=== PATIENT | male | born 1955 | race Caucasian/White ===

== ENCOUNTER 2018-02-02 00:50 | Inpatient (IN) | payer MEDICARE, MEDICAID, OTHER ==
[2018-02-02] MEDS: ALBUTEROL 0.5% (NEB) 2.5 MG/0.5 ML AMP INH (01:14)
[2018-02-02] MEDS: IPRATROPIUM (NEB) 0.5 MG/2.5 ML AMP INH (01:14)
[2018-02-02] MEDS: ASPIRIN 81 MG TAB PO (01:33)
[2018-02-02] MEDS: DEXAMETHASONE 10 MG/ML 1 ML INJ IV (01:33)
[2018-02-02 01:42] LABS: ADD MAN DIFF? NO
[2018-02-02] MEDS: MAGNESIUM SULFATE 2 GM/50 ML 50 ML IVPB (01:45)
[2018-02-02 01:47] LABS: BASOPHILS % 0.3 % (0.0-2.0); EOSINOPHILS # 0.2 10^3/ul (0.0-0.5); EOSINOPHILS % 1.9 % (0.0-7.0); HEMATOCRIT 33.7 % (42.0-52.0); HEMOGLOBIN 10.7 g/dl (14.0-18.0); LYMPHOCYTES # 1.9 10^3/ul (0.8-2.9); LYMPHOCYTES % 17.9 % (15.0-51.0); MEAN CORPUSCULAR HEMOGLOBIN 30.8 pg (29.0-33.0); MEAN CORPUSCULAR HGB CONC 31.8 g/dl (32.0-37.0); MEAN CORPUSCULAR VOLUME 97.1 fl (82.0-101.0); MEAN PLATELET VOLUME 10.8 fl (7.4-10.4); MONOCYTES % 9.5 % (0.0-11.0); NEUTROPHIL # 7.4 10^3/ul (1.6-7.5); NEUTROPHILS % 69.6 % (39.0-77.0); PLATELET COUNT 193 10^3/UL (140-415); RED BLOOD COUNT 3.47 10^6/ul (4.70-6.10); RED CELL DISTRIBUTION WIDTH 13.6 % (11.5-14.5)
[2018-02-02 01:47] LABS: WHITE BLOOD COUNT 10.6 10^3/ul (4.8-10.8)
[2018-02-02] MEDS: FUROSEMIDE 40 MG INJ IV (02:02)
[2018-02-02 02:09] LABS: PROTIME 13.3 Sec (11.9-14.9)
[2018-02-02 02:10] LABS: PARTIAL THROMBOPLASTIN TIME 55.1 Sec (23.0-35.0)
[2018-02-02 02:45] LABS: ANION GAP 12 (5-13); BLOOD UREA NITROGEN 46 mg/dl (7-20); CALCIUM 8.4 mg/dl (8.4-10.2); CARBON DIOXIDE 32 mmol/L (21-31); CHLORIDE 91 mmol/L (97-110); Estimated GFR 14 mL/min (>60); GLUCOSE 104 mg/dl (70-220); SODIUM 135 mmol/L (135-144)
[2018-02-02 02:49] LABS: POTASSIUM 4.6 mmol/L (3.5-5.1)
[2018-02-02 02:57] LABS: B-TYPE NATRIURETIC PEPTIDE 5290 PG/ML (0-125); TROPONIN-I 0.043 ng/ml (0.000-0.120)
[2018-02-02 05:22] LABS: AADO2 Arterial 73.5 mmHg (7.0-24.0); Arterial Base Excess -1.1 mmol/L (-3.0-3); Arterial Blood Gas Oxygen Sat 90.4 mmHG (95.0-98.0); Arterial COHb 1.1 % (0.0-3.0); Arterial Fraction of Oxyhgb 89.1 % (93.0-99.0); Arterial HCO3 25.5 mmol/L (22.0-26.0); Arterial MetHb 0.3 % (0.0-1.5); Arterial pCO2 51.9 mmhg (35-45); MODE NASAL CANNULA; Site Right Brachial
[2018-02-02] MEDS ORDERED: ONDANSETRON 4 MG INJ IV ×2 (05:30→13:30)
[2018-02-02] MEDS ORDERED: ACETAMINOPHEN 325 MG TAB PO (05:30)
[2018-02-02 08:07] LABS: CREATINE KINASE 133 IU/L (23-200)
[2018-02-02 08:13] LABS: CK INDEX 3.6; TROPONIN-I 0.038 ng/ml (0.000-0.120)
[2018-02-02 08:17] LABS: CK-MB 4.73 ng/ml (0.0-2.4)
[2018-02-02] MEDS ORDERED: NACL 0.9% 3 ML SYG IV (13:30)
[2018-02-02] MEDS ORDERED: HEPARIN 5,000 UNIT/1 ML VIAL SC (14:00)
[2018-02-02 14:16] LABS: CREATINE KINASE 132 IU/L (23-200)
[2018-02-02] MEDS: HEPARIN 5,000 UNIT/0.5 ML VIAL SC (14:22)
[2018-02-02 14:28] LABS: CK INDEX 3.2; TROPONIN-I 0.017 ng/ml (0.000-0.120)
[2018-02-02 14:31] LABS: CK-MB 4.26 ng/ml (0.0-2.4)
[2018-02-02] MEDS ORDERED: GLUCOSE GEL 15 GRAM TUBE BUCCAL (18:00)
[2018-02-02] MEDS ORDERED: DEXTROSE 50% 50 ML SYRINGE IV ×2 (18:00)
[2018-02-02] MEDS ORDERED: GLUCAGON 1 MG INJ IM (18:00)
[2018-02-02] MEDS ORDERED: GLUCOSE GEL 15 GRAM TUBE PO ×2 (18:00)
[2018-02-02] MEDS: INSULIN ASPART [NOVOLOG] 3 ML PEN SC ×2 (18:30→20:25)
[2018-02-02] MEDS: morphine 2 MG INJ IV ×2 (19:50→22:49)
[2018-02-02] MEDS: FAMOTIDINE 20 MG INJ IV (20:14)
[2018-02-02] MEDS ORDERED: HEPARIN 5,000 UNIT/0.5 ML VIAL (21:38)
[2018-02-02] MEDS: HEPARIN 5,000 UNIT/1 ML VIAL SC (21:46)
[2018-02-02] MEDS: ALBUTEROL 0.083% (NEB) 2.5 MG/3 ML AMP HHN (21:58)
[2018-02-03] MEDS: ALBUTEROL 0.083% (NEB) 2.5 MG/3 ML AMP HHN (02:14)
[2018-02-03] MEDS: LORAZEPAM 2 MG INJ IV (02:18)
[2018-02-03] MEDS: morphine 2 MG INJ IV (03:14)
[2018-02-03] MEDS ORDERED: HEPARIN 5,000 UNIT/0.5 ML VIAL (04:48)
[2018-02-03] MEDS: HEPARIN 5,000 UNIT/1 ML VIAL SC (05:01)
[2018-02-03 05:04] LABS: ADD MAN DIFF? NO
[2018-02-03 05:21] LABS: BASOPHILS % 0.2 % (0.0-2.0); EOSINOPHILS % 0.3 % (0.0-7.0); HEMATOCRIT 33.1 % (42.0-52.0); HEMOGLOBIN 10.5 g/dl (14.0-18.0); LYMPHOCYTES # 0.6 10^3/ul (0.8-2.9); LYMPHOCYTES % 5.4 % (15.0-51.0); MEAN CORPUSCULAR HEMOGLOBIN 30.4 pg (29.0-33.0); MEAN CORPUSCULAR HGB CONC 31.7 g/dl (32.0-37.0); MEAN CORPUSCULAR VOLUME 95.9 fl (82.0-101.0); MEAN PLATELET VOLUME 10.9 fl (7.4-10.4); MONOCYTE # 0.8 10^3/ul (0.3-0.9); MONOCYTES % 7.4 % (0.0-11.0); NEUTROPHIL # 9.7 10^3/ul (1.6-7.5); NEUTROPHILS % 85.9 % (39.0-77.0); PLATELET COUNT 224 10^3/UL (140-415); RED BLOOD COUNT 3.45 10^6/ul (4.70-6.10); RED CELL DISTRIBUTION WIDTH 13.8 % (11.5-14.5)
[2018-02-03 05:21] LABS: WHITE BLOOD COUNT 11.3 10^3/ul (4.8-10.8)
[2018-02-03 05:55] LABS: ALANINE AMINOTRANSFERASE 22 IU/L (13-69); ALBUMIN/GLOBULIN RATIO 1.25; ALKALINE PHOSPHATASE 110 IU/L (42-121); ANION GAP 17 (5-13); ASPARTATE AMINO TRANSFERASE 36 IU/L (15-46); BILIRUBIN,INDIRECT 0.2 mg/dl (0-1.1); BILIRUBIN,TOTAL 0.2 mg/dl (0.2-1.3); BLOOD UREA NITROGEN 75 mg/dl (7-20); CALCIUM 8.1 mg/dl (8.4-10.2); CARBON DIOXIDE 24 mmol/L (21-31); CHLORIDE 92 mmol/L (97-110); CREATININE 4.74 mg/dl (0.61-1.24); Estimated GFR 13 mL/min (>60); GLUCOSE 329 mg/dl (70-220); POTASSIUM 5.6 mmol/L (3.5-5.1); SODIUM 133 mmol/L (135-144); TOTAL PROTEIN 7.2 g/dl (6.1-8.1)
[2018-02-03] MEDS: INSULIN ASPART [NOVOLOG] 3 ML PEN SC ×4 (08:53→21:44)
[2018-02-03] MEDS ORDERED: METHYLPREDNISOLONE 125 MG INJ IV (09:00)
[2018-02-03 10:53] LABS: HEMOGLOBIN A1C 11.8 % (0-5.9)
[2018-02-03 12:59] LABS: AADO2 Arterial 93.9 mmHg (7.0-24.0); Allen Test ACCEPTAB; Arterial Base Excess -0.1 mmol/L (-3.0-3); Arterial Blood Gas Oxygen Sat 94.7 mmHG (95.0-98.0); Arterial COHb 0.1 % (0.0-3.0); Arterial Fraction of Oxyhgb 94.3 % (93.0-99.0); Arterial HCO3 26.3 mmol/L (22.0-26.0); Arterial MetHb 0.3 % (0.0-1.5); Arterial pCO2 50.5 mmhg (35-45); MODE NASAL CANNULA; Site Right Brachial
[2018-02-03] MEDS: DULOXETINE 30 MG CAP DR PO (13:30)
[2018-02-03] MEDS: LIDOCAINE 1% (MPF) 5 ML VIAL SC (14:00)
[2018-02-03] MEDS: ALBUTEROL/IPRATROPIUM (NEB) 3 ML AMP HHN ×2 (14:59→20:16)
[2018-02-03 15:15] LABS: HEPATITIS B SURFACE ANTIGEN NEGATIVE (NEGATIVE)
[2018-02-03 15:33] LABS: HEPATITIS B SURFACE ANTIBODY POSITIVE (NEGATIVE)
[2018-02-03] MEDS: SEVELAMER CARBONATE 0.8 GM PKT PO (17:35)
[2018-02-03] MEDS: CEFTRIAXONE 1 GM/50 ML (PMX) 50 ML IVPB (18:51)
[2018-02-03] MEDS: NPH, HUMAN INSULIN ISOPHANE 3ML VIAL SC ×2 (19:05→20:32)
[2018-02-03] MEDS: TAMSULOSIN (SR) 0.4 MG CAP PO (20:26)
[2018-02-03] MEDS: ATORVASTATIN 80 MG TAB PO (20:26)
[2018-02-03] MEDS: DOCUSATE SODIUM 250 MG CAP PO (20:26)
[2018-02-03] MEDS: FUROSEMIDE 40 MG TAB PO (20:26)
[2018-02-03] MEDS: ACETAMINOPHEN 325 MG TAB PO (20:27)
[2018-02-03] MEDS: APIXABAN 5 MG TABLET PO (20:27)
[2018-02-03] MEDS: METHYLPREDNISOLONE 40 MG INJ IV (20:27)
[2018-02-03] MEDS ORDERED: HALOPERIDOL 5 MG INJ (21:11)
[2018-02-04] MEDS ORDERED: HALOPERIDOL 5 MG INJ IM
[2018-02-04] MEDS: ALBUTEROL/IPRATROPIUM (NEB) 3 ML AMP HHN ×4 (02:00→20:28)
[2018-02-04] MEDS: PANTOPRAZOLE (EC) 40 MG TAB PO (05:45)
[2018-02-04 06:46] LABS: ALANINE AMINOTRANSFERASE 18 IU/L (13-69); ALBUMIN 4.2 g/dl (3.3-4.9); ALBUMIN/GLOBULIN RATIO 1.31; ALKALINE PHOSPHATASE 107 IU/L (42-121); ANION GAP 16 (5-13); ASPARTATE AMINO TRANSFERASE 27 IU/L (15-46); BILIRUBIN,INDIRECT 0.2 mg/dl (0-1.1); BILIRUBIN,TOTAL 0.2 mg/dl (0.2-1.3); BLOOD UREA NITROGEN 48 mg/dl (7-20); CALCIUM 8.4 mg/dl (8.4-10.2); CARBON DIOXIDE 29 mmol/L (21-31); CHLORIDE 89 mmol/L (97-110); CHOL/HDL RATIO 7.1 RATIO; CHOLESTEROL 236 mg/dl (100-200); CREATININE 4.12 mg/dl (0.61-1.24); Estimated GFR 15 mL/min (>60); GLUCOSE 368 mg/dl (70-220); HDL CHOLESTEROL 33 mg/dl (30-78); LDL CHOLESTEROL,CALCULATED 142 mg/dl; POTASSIUM 5.6 mmol/L (3.5-5.1); SODIUM 134 mmol/L (135-144); TOTAL PROTEIN 7.4 g/dl (6.1-8.1); TRIGLYCERIDES 303 mg/dl (0-149)
[2018-02-04] MEDS: FENOFIBRATE 145 MG TAB PO (08:39)
[2018-02-04] MEDS: SEVELAMER CARBONATE 0.8 GM PKT PO ×3 (08:39→18:07)
[2018-02-04] MEDS: METHYLPREDNISOLONE 40 MG INJ IV ×2 (08:39→20:54)
[2018-02-04] MEDS: DULOXETINE 30 MG CAP DR PO (08:40)
[2018-02-04] MEDS: ASPIRIN (EC) 81 MG TAB PO (08:40)
[2018-02-04] MEDS: APIXABAN 5 MG TABLET PO ×2 (08:40→20:55)
[2018-02-04] MEDS: FUROSEMIDE 40 MG TAB PO ×2 (08:41→20:56)
[2018-02-04] MEDS: DOCUSATE SODIUM 250 MG CAP PO ×2 (08:41→20:55)
[2018-02-04] MEDS: NPH, HUMAN INSULIN ISOPHANE 3ML VIAL SC ×2 (08:42→21:04)
[2018-02-04] MEDS: INSULIN ASPART [NOVOLOG] 3 ML PEN SC ×4 (08:44→21:05)
[2018-02-04 08:56] LABS: HEMOGLOBIN A1C 11.2 % (0-5.9)
[2018-02-04] MEDS ORDERED: NON-FORMULARY/PATIENT OWN MED (Esomeprazole Mag Trihydrate (Nexium) 40 MG) PO (09:00)
[2018-02-04] MEDS: CEFTRIAXONE 1 GM/50 ML (PMX) 50 ML IVPB (18:02)
[2018-02-04] MEDS: ATORVASTATIN 80 MG TAB PO (20:56)
[2018-02-04] MEDS: TAMSULOSIN (SR) 0.4 MG CAP PO (20:56)
[2018-02-04] MEDS: HALOPERIDOL 5 MG INJ IM (21:58)
[2018-02-04] MEDS: HYDROmorphONE 0.5 MG/0.5 ML SYG IV (22:47)
[2018-02-05] MEDS: ALBUTEROL/IPRATROPIUM (NEB) 3 ML AMP HHN ×4 (02:49→19:25)
[2018-02-05] MEDS: PANTOPRAZOLE (EC) 40 MG TAB PO (05:11)
[2018-02-05 05:17] LABS: ADD MAN DIFF? NO
[2018-02-05 05:19] LABS: WHITE BLOOD COUNT 9.7 10^3/ul (4.8-10.8)
[2018-02-05 05:19] LABS: BASOPHILS % 0.3 % (0.0-2.0); EOSINOPHILS % 0.4 % (0.0-7.0); HEMATOCRIT 36.5 % (42.0-52.0); HEMOGLOBIN 11.6 g/dl (14.0-18.0); LYMPHOCYTES # 1.1 10^3/ul (0.8-2.9); LYMPHOCYTES % 11.4 % (15.0-51.0); MEAN CORPUSCULAR HEMOGLOBIN 30.5 pg (29.0-33.0); MEAN CORPUSCULAR HGB CONC 31.8 g/dl (32.0-37.0); MEAN CORPUSCULAR VOLUME 96.1 fl (82.0-101.0); MEAN PLATELET VOLUME 10.6 fl (7.4-10.4); MONOCYTE # 0.5 10^3/ul (0.3-0.9); MONOCYTES % 4.9 % (0.0-11.0); NEUTROPHIL # 7.9 10^3/ul (1.6-7.5); NEUTROPHILS % 81.1 % (39.0-77.0); PLATELET COUNT 272 10^3/UL (140-415); RED CELL DISTRIBUTION WIDTH 13.5 % (11.5-14.5)
[2018-02-05 05:57] LABS: ALANINE AMINOTRANSFERASE 8 IU/L (13-69); ALBUMIN/GLOBULIN RATIO 1.08; ALKALINE PHOSPHATASE 128 IU/L (42-121); ANION GAP 18 (5-13); ASPARTATE AMINO TRANSFERASE 21 IU/L (15-46); BILIRUBIN,INDIRECT 0.2 mg/dl (0-1.1); BILIRUBIN,TOTAL 0.2 mg/dl (0.2-1.3); BLOOD UREA NITROGEN 54 mg/dl (7-20); CALCIUM 8.5 mg/dl (8.4-10.2); CARBON DIOXIDE 27 mmol/L (21-31); CHLORIDE 90 mmol/L (97-110); CREATININE 4.94 mg/dl (0.61-1.24); Estimated GFR 12 mL/min (>60); GLUCOSE 324 mg/dl (70-220); MAGNESIUM 2.2 mg/dl (1.7-2.5); PHOSPHORUS 5.3 mg/dl (2.5-4.9); SODIUM 135 mmol/L (135-144); TOTAL PROTEIN 7.7 g/dl (6.1-8.1)
[2018-02-05] MEDS: SEVELAMER CARBONATE 0.8 GM PKT PO ×3 (07:59→16:53)
[2018-02-05] MEDS: APIXABAN 5 MG TABLET PO ×2 (08:00→20:17)
[2018-02-05] MEDS: DULOXETINE 30 MG CAP DR PO (08:00)
[2018-02-05] MEDS: HYDROCODONE/APAP (5/325) TAB NGT ×2 (08:00→20:16)
[2018-02-05] MEDS: ASPIRIN (EC) 81 MG TAB PO (08:01)
[2018-02-05] MEDS: FENOFIBRATE 145 MG TAB PO (08:01)
[2018-02-05] MEDS: DOCUSATE SODIUM 250 MG CAP PO ×2 (08:01→20:16)
[2018-02-05] MEDS: INSULIN GLARGINE [LANTus] (100 UNITS/ML) SYG SC (08:15)
[2018-02-05] MEDS: INSULIN ASPART [NOVOLOG] 3 ML PEN SC ×7 (08:16→20:24)
[2018-02-05] MEDS: METHYLPREDNISOLONE 40 MG INJ IV (08:23)
[2018-02-05] MEDS: FUROSEMIDE 40 MG TAB PO (08:24)
[2018-02-05] MEDS: NPH, HUMAN INSULIN ISOPHANE 3ML VIAL SC (09:29)
[2018-02-05] MEDS: CEFTRIAXONE 1 GM/50 ML (PMX) 50 ML IVPB (13:34)
[2018-02-05 16:19] LABS: HEPATITIS B SURFACE ANTIGEN NEGATIVE (NEGATIVE)
[2018-02-05] MEDS: TAMSULOSIN (SR) 0.4 MG CAP PO (20:17)
[2018-02-05] MEDS: ATORVASTATIN 80 MG TAB PO (20:17)
[2018-02-05] MEDS: HYDROmorphONE 2 MG TAB PO (22:37)
[2018-02-06] MEDS: ALBUTEROL/IPRATROPIUM (NEB) 3 ML AMP HHN ×3 (01:06→14:00)
[2018-02-06] MEDS: HALOPERIDOL 5 MG INJ IM (03:21)
[2018-02-06] MEDS: HYDROmorphONE 2 MG TAB PO (04:21)
[2018-02-06] MEDS: PANTOPRAZOLE (EC) 40 MG TAB PO (05:14)
[2018-02-06 05:19] LABS: ADD MAN DIFF? NO
[2018-02-06 05:21] LABS: WHITE BLOOD COUNT 11.7 10^3/ul (4.8-10.8)
[2018-02-06 05:21] LABS: BASOPHIL # 0.1 10^3/ul (0.0-0.1); BASOPHILS % 0.5 % (0.0-2.0); EOSINOPHILS # 0.3 10^3/ul (0.0-0.5); EOSINOPHILS % 2.3 % (0.0-7.0); HEMATOCRIT 40.3 % (42.0-52.0); HEMOGLOBIN 12.8 g/dl (14.0-18.0); LYMPHOCYTES # 2.1 10^3/ul (0.8-2.9); LYMPHOCYTES % 18.1 % (15.0-51.0); MEAN CORPUSCULAR HGB CONC 31.8 g/dl (32.0-37.0); MEAN CORPUSCULAR VOLUME 94.4 fl (82.0-101.0); MEAN PLATELET VOLUME 10.6 fl (7.4-10.4); MONOCYTE # 0.8 10^3/ul (0.3-0.9); MONOCYTES % 6.6 % (0.0-11.0); NEUTROPHIL # 8.2 10^3/ul (1.6-7.5); NEUTROPHILS % 69.9 % (39.0-77.0); PLATELET COUNT 348 10^3/UL (140-415); RED BLOOD COUNT 4.27 10^6/ul (4.70-6.10); RED CELL DISTRIBUTION WIDTH 13.5 % (11.5-14.5)
[2018-02-06] MEDS: HYDROCODONE/APAP (5/325) TAB NGT (05:31)
[2018-02-06 05:43] LABS: ANION GAP 19 (5-13); BLOOD UREA NITROGEN 86 mg/dl (7-20); CALCIUM 8.9 mg/dl (8.4-10.2); CARBON DIOXIDE 27 mmol/L (21-31); CHLORIDE 88 mmol/L (97-110); CREATININE 6.15 mg/dl (0.61-1.24); Estimated GFR 9 mL/min (>60); GLUCOSE 251 mg/dl (70-220); MAGNESIUM 2.3 mg/dl (1.7-2.5); PHOSPHORUS 6.9 mg/dl (2.5-4.9); POTASSIUM 4.4 mmol/L (3.5-5.1); SODIUM 134 mmol/L (135-144)
[2018-02-06] MEDS: DOCUSATE SODIUM 250 MG CAP PO (09:00)
[2018-02-06] MEDS: SEVELAMER CARBONATE 0.8 GM PKT PO ×2 (09:14→11:30)
[2018-02-06] MEDS: METHYLPREDNISOLONE 40 MG INJ IV (09:14)
[2018-02-06] MEDS: INSULIN GLARGINE [LANTus] (100 UNITS/ML) SYG SC (09:19)
[2018-02-06] MEDS: INSULIN ASPART [NOVOLOG] 3 ML PEN SC ×4 (09:19→13:52)
[2018-02-06] MEDS: FENOFIBRATE 145 MG TAB PO (10:10)
[2018-02-06] MEDS: ASPIRIN (EC) 81 MG TAB PO (10:11)
[2018-02-06] MEDS: DULOXETINE 30 MG CAP DR PO (10:11)
[2018-02-06] MEDS: FUROSEMIDE 40 MG TAB PO (10:11)
[2018-02-06] MEDS: APIXABAN 5 MG TABLET PO (10:11)
[2018-02-06] MEDS: NPH, HUMAN INSULIN ISOPHANE 3ML VIAL SC (10:22)
== END 2018-02-06 14:50 | disposition home or self-care (01) | DRG 190 ==
LOC: E/R 00:50 → ICU 02-03 12:58 → 6WM 05:11
PROC: 5A1D70Z Performance of Urinary Filtration, Intermittent, Less than 6 Hours Per Day (ICD-10-PCS; 2018-02-03)
PROC: 5A1D70Z Performance of Urinary Filtration, Intermittent, Less than 6 Hours Per Day (ICD-10-PCS; 2018-02-04)
PROC: 5A1D70Z Performance of Urinary Filtration, Intermittent, Less than 6 Hours Per Day (ICD-10-PCS; principal; 2018-02-05)
DX: J44.1 Chronic obstructive pulmonary disease with (acute) exacerbation (principal); N18.6 End stage renal disease; J96.21 Acute and chronic respiratory failure with hypoxia; I50.33 Acute on chronic diastolic (congestive) heart failure; E87.2 Acidosis; I13.2 Hypertensive heart and chronic kidney disease with heart failure and with stage 5 chronic kidney disease, or end stage renal disease; E11.22 Type 2 diabetes mellitus with diabetic chronic kidney disease; E11.40 Type 2 diabetes mellitus with diabetic neuropathy, unspecified; E11.21 Type 2 diabetes mellitus with diabetic nephropathy; E11.319 Type 2 diabetes mellitus with unspecified diabetic retinopathy without macular edema; E87.5 Hyperkalemia; E11.65 Type 2 diabetes mellitus with hyperglycemia; D63.1 Anemia in chronic kidney disease; I73.9 Peripheral vascular disease, unspecified; G89.4 Chronic pain syndrome; I25.10 Atherosclerotic heart disease of native coronary artery without angina pectoris; E78.5 Hyperlipidemia, unspecified; N40.0 Benign prostatic hyperplasia without lower urinary tract symptoms; I25.5 Ischemic cardiomyopathy; E66.9 Obesity, unspecified; Z68.38 Body mass index [BMI] 38.0-38.9, adult; Z79.4 Long term (current) use of insulin; Z99.2 Dependence on renal dialysis; Z89.421 Acquired absence of other right toe(s); Z95.1 Presence of aortocoronary bypass graft; Z95.810 Presence of automatic (implantable) cardiac defibrillator
CPT/HCPCS: 36415; 36600; 71045; 80048; 80053; 80061; 82550; 82553; 82803; 82962; 83036; 83735; 83880; 84100; 84484; 85025; 85610; 85730; 86706; 87081; 87340; 90935; 93005; 94640; 94644; 94664; 96374; 96375; 99285-25

== ENCOUNTER 2018-03-18 22:58 | Inpatient (IN) | payer MEDICARE, OTHER, MEDICAID ==
[2018-03-18] MEDS: FUROSEMIDE 40 MG INJ IV (23:09)
[2018-03-18] MEDS: NITROGLYCERIN 50 MG/D5W (PMX) 250 ML IV (23:27)
[2018-03-18] MEDS: ASPIRIN 300 MG SUPP PR (23:31)
[2018-03-18] MEDS: LORAZEPAM 2 MG INJ IV (23:31)
[2018-03-18 23:46] LABS: ADD MAN DIFF? NO
[2018-03-18 23:53] LABS: WHITE BLOOD COUNT 17.1 10^3/ul (4.8-10.8)
[2018-03-18 23:54] LABS: ABNORMAL IP MESSAGE 1; BASOPHIL # 0.2 10^3/ul (0.0-0.1); BASOPHILS % 0.9 % (0.0-2.0); EOSINOPHILS # 0.3 10^3/ul (0.0-0.5); EOSINOPHILS % 1.6 % (0.0-7.0); HEMATOCRIT 35.8 % (42.0-52.0); HEMOGLOBIN 11.1 g/dl (14.0-18.0); LYMPHOCYTES % 29.5 % (15.0-51.0); MEAN CORPUSCULAR HEMOGLOBIN 31.7 pg (29.0-33.0); MEAN CORPUSCULAR VOLUME 102.3 fl (82.0-101.0); MEAN PLATELET VOLUME 11.3 fl (7.4-10.4); MONOCYTE # 1.4 10^3/ul (0.3-0.9); MONOCYTES % 8.3 % (0.0-11.0); NEUTROPHILS % 58.6 % (39.0-77.0); NUCLEATED RED BLOOD CELLS% 0.1 /100WBC (0.0-0.0); PLATELET COUNT 310 10^3/UL (140-415); POSITIVE DIFF @See below; RED CELL DISTRIBUTION WIDTH 15.7 % (11.5-14.5)
[2018-03-19 00:04] LABS: ANION GAP 17 (5-13); BLOOD UREA NITROGEN 46 mg/dl (7-20); CALCIUM 8.8 mg/dl (8.4-10.2); CARBON DIOXIDE 29 mmol/L (21-31); CHLORIDE 90 mmol/L (97-110); CREATININE 3.72 mg/dl (0.61-1.24); Estimated GFR 17 mL/min (>60); POTASSIUM 5.2 mmol/L (3.5-5.1); SODIUM 136 mmol/L (135-144)
[2018-03-19 00:08] LABS: AADO2 Arterial 162.6 mmHg (7.0-24.0); Arterial Base Excess -1.7 mmol/L (-3.0-3); Arterial Blood Gas Oxygen Sat 99.1 mmHG (95.0-98.0); Arterial COHb 0.3 % (0.0-3.0); Arterial Fraction of Oxyhgb 98.5 % (93.0-99.0); Arterial HCO3 27.3 mmol/L (22.0-26.0); Arterial MetHb 0.3 % (0.0-1.5); Arterial pCO2 69.6 mmhg (35-45); Blood Gas IEPAP 15/5; MODE MASK - BIPAP; Site Right Brachial
[2018-03-19 00:16] LABS: TROPONIN-I 0.084 ng/ml (0.000-0.120)
[2018-03-19] MEDS: morphine 4 MG/ML VIAL IV ×3 (00:22→17:04)
[2018-03-19] MEDS: LORAZEPAM 2 MG INJ IV (00:23)
[2018-03-19 00:26] LABS: GLUCOSE 622 mg/dl (70-220)
[2018-03-19] MEDS: KETAMINE (50 MG/ML) 10 ML VIAL IV ×2 (00:30→02:29)
[2018-03-19 00:49] LABS: INR 0.94; PROTIME 12.7 Sec (11.9-14.9)
[2018-03-19 00:50] LABS: PARTIAL THROMBOPLASTIN TIME 46.3 Sec (23.0-35.0)
[2018-03-19] MEDS: IPRATROPIUM (NEB) 0.5 MG/2.5 ML AMP HHN ×4 (00:51→19:55)
[2018-03-19] MEDS: ALBUTEROL 0.083% (NEB) 2.5 MG/3 ML AMP HHN ×4 (00:51→19:55)
[2018-03-19] MEDS: INSULIN LISPRO 100 UNIT/ML VIAL SC (01:07)
[2018-03-19 03:36] LABS: LACTIC ACID 1.3 mmol/L (0.5-2.0)
[2018-03-19 06:39] LABS: CREATINE KINASE 114 IU/L (23-200)
[2018-03-19 06:47] LABS: CK INDEX 2.8
[2018-03-19 06:49] LABS: CK-MB 3.17 ng/ml (0.0-2.4)
[2018-03-19 06:52] LABS: TROPONIN-I 0.195 ng/ml (0.000-0.120)
[2018-03-19] MEDS ORDERED: GLUCOSE GEL 15 GRAM TUBE PO ×2 (08:00)
[2018-03-19] MEDS ORDERED: LORAZEPAM 2 MG INJ IV (08:00)
[2018-03-19] MEDS ORDERED: DEXTROSE 50% 50 ML SYRINGE IV ×2 (08:00)
[2018-03-19] MEDS ORDERED: GLUCAGON 1 MG INJ IM (08:00)
[2018-03-19] MEDS ORDERED: INSULIN ASPART [NOVOLOG] 3 ML PEN SC (08:00)
[2018-03-19] MEDS ORDERED: GLUCOSE GEL 15 GRAM TUBE BUCCAL (08:00)
[2018-03-19 08:39] LABS: MAGNESIUM 1.9 mg/dl (1.7-2.5)
[2018-03-19 08:53] LABS: FREE THYROXINE INDEX (Calc) 2.41 ug/ml (0.65-3.89); T4 (THYROXINE) 7.1 ug/dl (5.5-11.0)
[2018-03-19] MEDS: METOPROLOL (XL) 50 MG TAB PO (09:00)
[2018-03-19 09:07] LABS: PROSTATE SPECIFIC ANTIGEN 0.4 ng/ml (0.0-4.0)
[2018-03-19] MEDS: FENOFIBRATE 145 MG TAB PO (09:10)
[2018-03-19] MEDS: INSULIN ASPART [NOVOLOG] 3 ML PEN SC ×3 (09:10→17:07)
[2018-03-19] MEDS: DULOXETINE 30 MG CAP DR PO (09:10)
[2018-03-19] MEDS: CLOPIDOGREL 75 MG TAB PO (09:10)
[2018-03-19] MEDS: ASPIRIN (EC) 81 MG TAB PO (09:10)
[2018-03-19] MEDS: DOCUSATE SODIUM 250 MG CAP PO ×2 (09:10→20:49)
[2018-03-19] MEDS: SEVELAMER CARBONATE 0.8 GM PKT PO ×3 (09:11→17:04)
[2018-03-19] MEDS: PREGABALIN 50 MG CAP PO ×2 (09:11→20:49)
[2018-03-19] MEDS: APIXABAN 5 MG TABLET PO ×2 (09:11→20:50)
[2018-03-19] MEDS: CYCLOBENZAPRINE 10 MG TAB PO ×4 (10:14→23:44)
[2018-03-19 11:46] LABS: HEPATITIS B SURFACE ANTIGEN NEGATIVE (NEGATIVE)
[2018-03-19 15:51] LABS: CREATINE KINASE 127 IU/L (23-200)
[2018-03-19 16:04] LABS: CK INDEX 2.2
[2018-03-19 16:24] LABS: CK-MB 2.78 ng/ml (0.0-2.4); TROPONIN-I 0.441 ng/ml (0.000-0.120)
[2018-03-19] MEDS: ACCU-CHEK XX ×2 (17:07→21:09)
[2018-03-19] MEDS: TAMSULOSIN (SR) 0.4 MG CAP PO (20:49)
[2018-03-19] MEDS: ATORVASTATIN 80 MG TAB PO (21:09)
[2018-03-19] MEDS: INSULIN GLARGINE [LANTus] (100 UNITS/ML) SYG SC (21:17)
[2018-03-19] MEDS: morphine LIQ (10 MG/5 ML) CUP PO (22:48)
[2018-03-19] MEDS: ZOLPIDEM 5 MG TAB PO (23:44)
[2018-03-20] MEDS: morphine LIQ (10 MG/5 ML) CUP PO ×3 (03:37→22:21)
[2018-03-20 05:47] LABS: ADD MAN DIFF? NO
[2018-03-20] MEDS: CYCLOBENZAPRINE 10 MG TAB PO ×4 (05:48→23:40)
[2018-03-20 05:53] LABS: BASOPHIL # 0.1 10^3/ul (0.0-0.1); EOSINOPHILS # 0.3 10^3/ul (0.0-0.5); EOSINOPHILS % 2.8 % (0.0-7.0); HEMATOCRIT 29.6 % (42.0-52.0); HEMOGLOBIN 9.4 g/dl (14.0-18.0); LYMPHOCYTES # 1.7 10^3/ul (0.8-2.9); LYMPHOCYTES % 18.3 % (15.0-51.0); MEAN CORPUSCULAR HEMOGLOBIN 31.8 pg (29.0-33.0); MEAN CORPUSCULAR HGB CONC 31.8 g/dl (32.0-37.0); MEAN PLATELET VOLUME 10.5 fl (7.4-10.4); MONOCYTE # 0.7 10^3/ul (0.3-0.9); MONOCYTES % 8.2 % (0.0-11.0); NEUTROPHIL # 6.2 10^3/ul (1.6-7.5); NEUTROPHILS % 68.9 % (39.0-77.0); PLATELET COUNT 258 10^3/UL (140-415); RED BLOOD COUNT 2.96 10^6/ul (4.70-6.10); RED CELL DISTRIBUTION WIDTH 15.6 % (11.5-14.5)
[2018-03-20] MEDS: ACCU-CHEK XX ×4 (06:03→20:37)
[2018-03-20 06:20] LABS: ALANINE AMINOTRANSFERASE 22 IU/L (13-69); ALBUMIN 3.8 g/dl (3.3-4.9); ALBUMIN/GLOBULIN RATIO 1.15; ALKALINE PHOSPHATASE 63 IU/L (42-121); ANION GAP 13 (5-13); ASPARTATE AMINO TRANSFERASE 34 IU/L (15-46); BLOOD UREA NITROGEN 45 mg/dl (7-20); CALCIUM 8.8 mg/dl (8.4-10.2); CARBON DIOXIDE 31 mmol/L (21-31); CHLORIDE 93 mmol/L (97-110); CREATININE 3.59 mg/dl (0.61-1.24); Estimated GFR 17 mL/min (>60); GLUCOSE 137 mg/dl (70-220); POTASSIUM 3.6 mmol/L (3.5-5.1); SODIUM 137 mmol/L (135-144); TOTAL PROTEIN 7.1 g/dl (6.1-8.1)
[2018-03-20] MEDS: INSULIN ASPART [NOVOLOG] 3 ML PEN SC ×4 (08:47→17:17)
[2018-03-20] MEDS: CLOPIDOGREL 75 MG TAB PO (08:55)
[2018-03-20] MEDS: PREGABALIN 50 MG CAP PO ×2 (08:55→20:38)
[2018-03-20] MEDS: FENOFIBRATE 145 MG TAB PO (08:55)
[2018-03-20] MEDS: DOCUSATE SODIUM 250 MG CAP PO ×2 (08:55→20:38)
[2018-03-20] MEDS: DULOXETINE 30 MG CAP DR PO (08:55)
[2018-03-20] MEDS: SEVELAMER CARBONATE 0.8 GM PKT PO ×3 (08:55→17:11)
[2018-03-20] MEDS: ASPIRIN (EC) 81 MG TAB PO (08:56)
[2018-03-20] MEDS: APIXABAN 5 MG TABLET PO ×2 (08:56→20:38)
[2018-03-20] MEDS: IPRATROPIUM (NEB) 0.5 MG/2.5 ML AMP HHN ×3 (09:15→20:41)
[2018-03-20] MEDS: ALBUTEROL 0.083% (NEB) 2.5 MG/3 ML AMP HHN ×3 (09:15→20:41)
[2018-03-20] MEDS: morphine 4 MG/ML VIAL IV (12:32)
[2018-03-20] MEDS: TAMSULOSIN (SR) 0.4 MG CAP PO (20:38)
[2018-03-20] MEDS: ATORVASTATIN 80 MG TAB PO (20:42)
[2018-03-20] MEDS: INSULIN GLARGINE [LANTus] (100 UNITS/ML) SYG SC (20:51)
[2018-03-20] MEDS: ZOLPIDEM 5 MG TAB PO (23:40)
[2018-03-20 23:45] LABS: Arterial Base Excess 5.9 mmol/L (-3.0-3); Arterial Blood Gas Oxygen Sat 94.7 mmHG (95.0-98.0); Arterial COHb 0.4 % (0.0-3.0); Arterial HCO3 31.4 mmol/L (22.0-26.0); Arterial MetHb 0.3 % (0.0-1.5); Arterial pCO2 49.9 mmhg (35-45); MODE NASAL CANNULA; Site Right Brachial
[2018-03-21] MEDS: CYCLOBENZAPRINE 10 MG TAB PO ×3 (05:22→17:12)
[2018-03-21] MEDS: ACCU-CHEK XX ×4 (07:00→20:57)
[2018-03-21] MEDS: IPRATROPIUM (NEB) 0.5 MG/2.5 ML AMP HHN ×3 (07:36→20:27)
[2018-03-21] MEDS: ALBUTEROL 0.083% (NEB) 2.5 MG/3 ML AMP HHN ×3 (07:36→20:27)
[2018-03-21] MEDS: APIXABAN 5 MG TABLET PO ×2 (08:23→20:00)
[2018-03-21] MEDS: DULOXETINE 30 MG CAP DR PO (08:23)
[2018-03-21] MEDS: FENOFIBRATE 145 MG TAB PO (08:23)
[2018-03-21] MEDS: CLOPIDOGREL 75 MG TAB PO (08:23)
[2018-03-21] MEDS: PREGABALIN 50 MG CAP PO ×2 (08:23→20:00)
[2018-03-21] MEDS: DOCUSATE SODIUM 250 MG CAP PO ×2 (08:23→20:00)
[2018-03-21] MEDS: ASPIRIN (EC) 81 MG TAB PO (08:23)
[2018-03-21] MEDS: SEVELAMER CARBONATE 0.8 GM PKT PO ×3 (08:24→17:12)
[2018-03-21] MEDS: INSULIN ASPART [NOVOLOG] 3 ML PEN SC ×3 (08:35→17:20)
[2018-03-21] MEDS: morphine LIQ (10 MG/5 ML) CUP PO ×2 (11:35→20:01)
[2018-03-21] MEDS: TAMSULOSIN (SR) 0.4 MG CAP PO (20:00)
[2018-03-21] MEDS: ATORVASTATIN 80 MG TAB PO (20:00)
[2018-03-21] MEDS: INSULIN GLARGINE [LANTus] (100 UNITS/ML) SYG SC (20:07)
[2018-03-22] MEDS: CYCLOBENZAPRINE 10 MG TAB PO ×3 (00:07→12:05)
[2018-03-22] MEDS: morphine LIQ (10 MG/5 ML) CUP PO ×2 (04:24→08:25)
[2018-03-22] MEDS: ACCU-CHEK XX ×2 (07:44→12:02)
[2018-03-22] MEDS: IPRATROPIUM (NEB) 0.5 MG/2.5 ML AMP HHN (07:49)
[2018-03-22] MEDS: ALBUTEROL 0.083% (NEB) 2.5 MG/3 ML AMP HHN (07:49)
[2018-03-22] MEDS: INSULIN ASPART [NOVOLOG] 3 ML PEN SC ×2 (07:58→12:12)
[2018-03-22] MEDS: APIXABAN 5 MG TABLET PO (08:25)
[2018-03-22] MEDS: SEVELAMER CARBONATE 0.8 GM PKT PO ×2 (08:25→12:05)
[2018-03-22] MEDS: FENOFIBRATE 145 MG TAB PO (08:26)
[2018-03-22] MEDS: ASPIRIN (EC) 81 MG TAB PO (08:26)
[2018-03-22] MEDS: DULOXETINE 30 MG CAP DR PO (08:26)
[2018-03-22] MEDS: CLOPIDOGREL 75 MG TAB PO (08:26)
[2018-03-22] MEDS: DOCUSATE SODIUM 250 MG CAP PO (08:26)
[2018-03-22] MEDS: PREGABALIN 50 MG CAP PO (08:31)
[2018-03-22] MEDS ORDERED: ALBUMIN HUMAN 25% 100 ML (10:30)
[2018-03-22] MEDS: ALBUMIN HUMAN 25% 100 ML IV (10:50)
== END 2018-03-22 16:03 | disposition home or self-care (01) | DRG 291 ==
LOC: E/R 22:58 → 6WM 03-19 00:16
PROC: 5A1D70Z Performance of Urinary Filtration, Intermittent, Less than 6 Hours Per Day (ICD-10-PCS; 2018-03-19)
PROC: 5A1D70Z Performance of Urinary Filtration, Intermittent, Less than 6 Hours Per Day (ICD-10-PCS; principal; 2018-03-21)
DX: I13.2 Hypertensive heart and chronic kidney disease with heart failure and with stage 5 chronic kidney disease, or end stage renal disease (principal); I50.43 Acute on chronic combined systolic (congestive) and diastolic (congestive) heart failure; N18.6 End stage renal disease; J96.01 Acute respiratory failure with hypoxia; J44.1 Chronic obstructive pulmonary disease with (acute) exacerbation; E11.22 Type 2 diabetes mellitus with diabetic chronic kidney disease; E11.40 Type 2 diabetes mellitus with diabetic neuropathy, unspecified; E11.21 Type 2 diabetes mellitus with diabetic nephropathy; E11.51 Type 2 diabetes mellitus with diabetic peripheral angiopathy without gangrene; E11.65 Type 2 diabetes mellitus with hyperglycemia; E11.319 Type 2 diabetes mellitus with unspecified diabetic retinopathy without macular edema; Z79.01 Long term (current) use of anticoagulants; D63.1 Anemia in chronic kidney disease; D63.8 Anemia in other chronic diseases classified elsewhere; I25.10 Atherosclerotic heart disease of native coronary artery without angina pectoris; F32.9 Major depressive disorder, single episode, unspecified; I25.5 Ischemic cardiomyopathy; I16.0 Hypertensive urgency; Z79.4 Long term (current) use of insulin; Z79.84 Long term (current) use of oral hypoglycemic drugs; Z99.2 Dependence on renal dialysis; Z87.891 Personal history of nicotine dependence; Z79.82 Long term (current) use of aspirin; Z91.14 Patient's other noncompliance with medication regimen; Z91.15 Patient's noncompliance with renal dialysis
CPT/HCPCS: 36415; 36600; 71045; 80048; 80053; 82550; 82553; 82803; 82962; 83605; 83735; 84153; 84154; 84436; 84443; 84479; 84484; 85025; 85610; 85730; 87040; 87340; 90686; 90935; 93005; 93306; 94640; 94660; 94664; 96374; 96375; 99291-25

== ENCOUNTER 2018-04-27 00:42 | Inpatient (IN) | payer MEDICARE, OTHER ==
[2018-04-27] MEDS ORDERED: MIDAZOLAM (DRIP) 50 mg/50 mL 50 ML IV (01:03)
[2018-04-27] MEDS: PROPOFOL 100 ML IV (01:23)
[2018-04-27] MEDS: ALBUTEROL 0.5% (NEB) 2.5 MG/0.5 ML AMP INH (01:30)
[2018-04-27] MEDS ORDERED: ONDANSETRON 4 MG INJ IV (01:30)
[2018-04-27] MEDS ORDERED: FENTAnyl (DRIP) 1000 mcg/100mL 100 ML IV ×2 (01:30→13:00)
[2018-04-27] MEDS: IPRATROPIUM (NEB) 0.5 MG/2.5 ML AMP INH (01:30)
[2018-04-27] MEDS: FUROSEMIDE 40 MG INJ IV (01:39)
[2018-04-27] MEDS: MIDAZOLAM (DRIP) 50 mg/50 mL 50 ML IV ×2 (01:40→10:26)
[2018-04-27] MEDS: FENTAnyl (DRIP) 1000 mcg/100mL 100 ML IV (01:46)
[2018-04-27] MEDS: METHYLPREDNISOLONE 125 MG INJ IV (01:50)
[2018-04-27 04:09] LABS: AADO2 Arterial 590.6 mmHg (7.0-24.0); Allen Test ACCEPTAB; Arterial Base Excess 1.8 mmol/L (-3.0-3); Arterial Blood Gas Oxygen Sat 83.8 mmHG (95.0-98.0); Arterial COHb 0.5 % (0.0-3.0); Arterial Fraction of Oxyhgb 83.2 % (93.0-99.0); Arterial HCO3 30.4 mmol/L (22.0-26.0); Arterial MetHb 0.2 % (0.0-1.5); Arterial pCO2 68.2 mmhg (35-45); MODE VENT - AC; Site Right Radial
[2018-04-27 04:23] LABS: AADO2 Arterial 369.9 mmHg (7.0-24.0); Allen Test ACCEPTAB; Arterial Base Excess 0.7 mmol/L (-3.0-3); Arterial Blood Gas Oxygen Sat 99.3 mmHG (95.0-98.0); Arterial COHb 0.4 % (0.0-3.0); Arterial Fraction of Oxyhgb 98.7 % (93.0-99.0); Arterial HCO3 28.1 mmol/L (22.0-26.0); Arterial MetHb 0.2 % (0.0-1.5); MODE VENT - AC; Site Right Radial
[2018-04-27 04:37] LABS: ADD MAN DIFF? NO
[2018-04-27 04:39] LABS: WHITE BLOOD COUNT 14.3 10^3/ul (4.8-10.8)
[2018-04-27 04:39] LABS: BASOPHIL # 0.1 10^3/ul (0.0-0.1); BASOPHILS % 0.5 % (0.0-2.0); EOSINOPHILS # 0.3 10^3/ul (0.0-0.5); EOSINOPHILS % 1.9 % (0.0-7.0); HEMATOCRIT 35.8 % (42.0-52.0); LYMPHOCYTES # 1.3 10^3/ul (0.8-2.9); LYMPHOCYTES % 8.8 % (15.0-51.0); MEAN CORPUSCULAR HEMOGLOBIN 30.9 pg (29.0-33.0); MEAN CORPUSCULAR HGB CONC 30.7 g/dl (32.0-37.0); MEAN CORPUSCULAR VOLUME 100.6 fl (82.0-101.0); MEAN PLATELET VOLUME 10.5 fl (7.4-10.4); MONOCYTE # 0.6 10^3/ul (0.3-0.9); MONOCYTES % 4.3 % (0.0-11.0); NEUTROPHILS % 83.7 % (39.0-77.0); PLATELET COUNT 211 10^3/UL (140-415); RED BLOOD COUNT 3.56 10^6/ul (4.70-6.10); RED CELL DISTRIBUTION WIDTH 14.3 % (11.5-14.5)
[2018-04-27 05:00] LABS: ALANINE AMINOTRANSFERASE 25 IU/L (13-69); ALBUMIN 4.2 g/dl (3.3-4.9); ALBUMIN/GLOBULIN RATIO 1.31; ALKALINE PHOSPHATASE 128 IU/L (42-121); ANION GAP 14 (5-13); ASPARTATE AMINO TRANSFERASE 42 IU/L (15-46); BILIRUBIN,INDIRECT 0.1 mg/dl (0-1.1); BILIRUBIN,TOTAL 0.1 mg/dl (0.2-1.3); BLOOD UREA NITROGEN 90 mg/dl (7-20); CALCIUM 8.4 mg/dl (8.4-10.2); CARBON DIOXIDE 30 mmol/L (21-31); CHLORIDE 97 mmol/L (97-110); CREATININE 3.81 mg/dl (0.61-1.24); Estimated GFR 16 mL/min (>60); GLUCOSE 274 mg/dl (70-220); LIPASE 1385 U/L (23-300); POTASSIUM 4.3 mmol/L (3.5-5.1); SODIUM 141 mmol/L (135-144); TOTAL PROTEIN 7.4 g/dl (6.1-8.1)
[2018-04-27 05:02] LABS: INR 0.93; PROTIME 12.6 Sec (11.9-14.9)
[2018-04-27 05:03] LABS: PARTIAL THROMBOPLASTIN TIME 35.4 Sec (23.0-35.0)
[2018-04-27 05:21] LABS: TROPONIN-I 0.463 ng/ml (0.000-0.120)
[2018-04-27] MEDS: CEFTRIAXONE 1 GM/50 ML (PMX) 50 ML IVPB (06:49)
[2018-04-27] MEDS: HEPARIN 5,000 UNIT/1 ML VIAL SC ×3 (06:50→23:02)
[2018-04-27] MEDS ORDERED: ETOMIDATE 20 MG INJ (07:00)
[2018-04-27] MEDS ORDERED: PROPOFOL 200 MG INJ (07:00)
[2018-04-27] MEDS ORDERED: SUCCINYLCHOLINE CHLORIDE 100 MG/5 ML SYG IV (07:00)
[2018-04-27 07:59] LABS: HEMOGLOBIN A1C 9.5 % (0-5.9)
[2018-04-27] MEDS: FAMOTIDINE 20 MG INJ IV (09:03)
[2018-04-27] MEDS: ALBUTEROL HFA 8 GM INHALER INH ×3 (10:42→19:31)
[2018-04-27] MEDS: LEVOFLOXACIN 500MG/D5W (PMX) 100 ML IVPB (10:44)
[2018-04-27] MEDS: METHYLPREDNISOLONE 40 MG INJ IV ×3 (10:44→23:07)
[2018-04-27] MEDS ORDERED: DEXTROSE 50% 50 ML SYRINGE IV ×2 (13:00)
[2018-04-27] MEDS ORDERED: GLUCOSE GEL 15 GRAM TUBE BUCCAL (13:00)
[2018-04-27] MEDS ORDERED: GLUCAGON 1 MG INJ IM (13:00)
[2018-04-27] MEDS ORDERED: GLUCOSE GEL 15 GRAM TUBE PO ×2 (13:00)
[2018-04-27] MEDS ORDERED: MIDAZOLAM IV (13:30)
[2018-04-27] MEDS ORDERED: FENTAnyl 1,000 MCG in SOD CHLORIDE 0.9% 100 ML IV (13:30)
[2018-04-27] MEDS ORDERED: SOD CHLORIDE 0.9% IV (13:30)
[2018-04-27 13:44] LABS: TROPONIN-I 0.336 ng/ml (0.000-0.120)
[2018-04-27 14:27] LABS: HEPATITIS B SURFACE ANTIGEN NEGATIVE (NEGATIVE)
[2018-04-27] MEDS: SOD CHLORIDE 0.9% IV (16:50)
[2018-04-27] MEDS: MIDAZOLAM IV (16:50)
[2018-04-27] MEDS: INSULIN ASPART [NOVOLOG] 3 ML PEN SC ×2 (17:42→18:07)
[2018-04-27] MEDS: INSULIN GLARGINE [LANTus] (100 UNITS/ML) SYG SC (21:11)
[2018-04-27] MEDS: ALBUMIN HUMAN 25% 100 ML IV ×2 (22:03→23:00)
[2018-04-27] MEDS: FENTAnyl 1,000 MCG in SOD CHLORIDE 0.9% 80 ML IV (23:06)
[2018-04-28] MEDS: INSULIN ASPART [NOVOLOG] 3 ML PEN SC ×6 (01:03→21:00)
[2018-04-28] MEDS: ALBUTEROL HFA 8 GM INHALER INH (01:11)
[2018-04-28] MEDS: SOD CHLORIDE 0.9% IV (03:46)
[2018-04-28] MEDS: MIDAZOLAM IV (03:46)
[2018-04-28 04:52] LABS: ADD MAN DIFF? NO
[2018-04-28 05:01] LABS: WHITE BLOOD COUNT 11.3 10^3/ul (4.8-10.8)
[2018-04-28 05:01] LABS: BASOPHILS % 0.3 % (0.0-2.0); EOSINOPHILS % 0.1 % (0.0-7.0); HEMATOCRIT 34.1 % (42.0-52.0); HEMOGLOBIN 10.7 g/dl (14.0-18.0); LYMPHOCYTES # 0.6 10^3/ul (0.8-2.9); LYMPHOCYTES % 5.7 % (15.0-51.0); MEAN CORPUSCULAR HEMOGLOBIN 30.9 pg (29.0-33.0); MEAN CORPUSCULAR HGB CONC 31.4 g/dl (32.0-37.0); MEAN CORPUSCULAR VOLUME 98.6 fl (82.0-101.0); MEAN PLATELET VOLUME 11.3 fl (7.4-10.4); MONOCYTE # 0.5 10^3/ul (0.3-0.9); MONOCYTES % 4.1 % (0.0-11.0); NEUTROPHIL # 10.1 10^3/ul (1.6-7.5); NEUTROPHILS % 89.2 % (39.0-77.0); PLATELET COUNT 216 10^3/UL (140-415); RED BLOOD COUNT 3.46 10^6/ul (4.70-6.10); RED CELL DISTRIBUTION WIDTH 14.6 % (11.5-14.5)
[2018-04-28 05:29] LABS: ALANINE AMINOTRANSFERASE 19 IU/L (13-69); ALBUMIN 4.3 g/dl (3.3-4.9); ALBUMIN/GLOBULIN RATIO 1.43; ALKALINE PHOSPHATASE 67 IU/L (42-121); ANION GAP 12 (5-13); ASPARTATE AMINO TRANSFERASE 25 IU/L (15-46); BILIRUBIN,INDIRECT 0.3 mg/dl (0-1.1); BILIRUBIN,TOTAL 0.3 mg/dl (0.2-1.3); BLOOD UREA NITROGEN 58 mg/dl (7-20); CALCIUM 9.2 mg/dl (8.4-10.2); CARBON DIOXIDE 31 mmol/L (21-31); CHLORIDE 100 mmol/L (97-110); CREATININE 2.89 mg/dl (0.61-1.24); Estimated GFR 22 mL/min (>60); GLUCOSE 257 mg/dl (70-220); LIPASE 205 U/L (23-300); POTASSIUM 4.9 mmol/L (3.5-5.1); SODIUM 143 mmol/L (135-144); TOTAL PROTEIN 7.3 g/dl (6.1-8.1)
[2018-04-28 05:30] LABS: PHOSPHORUS 3.2 mg/dl (2.5-4.9)
[2018-04-28] MEDS ORDERED: PANTOPRAZOLE 40 MG INJ IV (06:00)
[2018-04-28] MEDS: HEPARIN 5,000 UNIT/1 ML VIAL SC ×3 (06:29→22:00)
[2018-04-28] MEDS: METHYLPREDNISOLONE 40 MG INJ IV ×3 (06:31→21:59)
[2018-04-28] MEDS: morphine 2 MG INJ IV ×3 (07:20→16:10)
[2018-04-28 08:13] LABS: AADO2 Arterial 111.4 mmHg (7.0-24.0); Allen Test ACCEPTAB; Arterial Base Excess 1.6 mmol/L (-3.0-3); Arterial Blood Gas Oxygen Sat 89.6 mmHG (95.0-98.0); Arterial Fraction of Oxyhgb 88.7 % (93.0-99.0); Arterial HCO3 27.8 mmol/L (22.0-26.0); Arterial MetHb 0 % (0.0-1.5); Arterial pCO2 50.6 mmhg (35-45); MODE NASAL CANNULA; Site LB
[2018-04-28] MEDS: ALBUTEROL/IPRATROPIUM (NEB) 3 ML AMP HHN ×4 (08:28→19:36)
[2018-04-28] MEDS: FAMOTIDINE 20 MG INJ IV (09:10)
[2018-04-28] MEDS: INSULIN GLARGINE [LANTus] (100 UNITS/ML) SYG SC ×2 (12:52→22:03)
[2018-04-28] MEDS: morphine 4 MG/ML VIAL IV (18:02)
[2018-04-28] MEDS ORDERED: INSULIN GLARGINE [LANTus] (100 UNITS/ML) SYG SC (20:00)
[2018-04-28] MEDS: LORAZEPAM 1 MG TAB PO (22:03)
[2018-04-29] MEDS: ALBUTEROL/IPRATROPIUM (NEB) 3 ML AMP HHN ×4 (01:20→20:50)
[2018-04-29] MEDS: LORAZEPAM 1 MG TAB PO ×2 (01:48→15:59)
[2018-04-29] MEDS: ACCU-CHEK XX (02:00)
[2018-04-29] MEDS: HYDROCODONE/APAP (10/325) TAB PO (05:19)
[2018-04-29] MEDS: METHYLPREDNISOLONE 40 MG INJ IV ×3 (05:20→21:18)
[2018-04-29] MEDS: HEPARIN 5,000 UNIT/1 ML VIAL SC ×3 (05:35→21:24)
[2018-04-29 06:05] LABS: ADD MAN DIFF? NO
[2018-04-29 06:06] LABS: WHITE BLOOD COUNT 9.6 10^3/ul (4.8-10.8)
[2018-04-29 06:06] LABS: BASOPHILS % 0.2 % (0.0-2.0); EOSINOPHILS % 0.1 % (0.0-7.0); HEMOGLOBIN 11.1 g/dl (14.0-18.0); LYMPHOCYTES # 0.6 10^3/ul (0.8-2.9); LYMPHOCYTES % 6.5 % (15.0-51.0); MEAN CORPUSCULAR HEMOGLOBIN 30.9 pg (29.0-33.0); MEAN CORPUSCULAR HGB CONC 30.8 g/dl (32.0-37.0); MEAN CORPUSCULAR VOLUME 100.3 fl (82.0-101.0); MONOCYTE # 0.3 10^3/ul (0.3-0.9); MONOCYTES % 3.2 % (0.0-11.0); NEUTROPHIL # 8.6 10^3/ul (1.6-7.5); NEUTROPHILS % 89.6 % (39.0-77.0); PLATELET COUNT 245 10^3/UL (140-415); RED BLOOD COUNT 3.59 10^6/ul (4.70-6.10); RED CELL DISTRIBUTION WIDTH 14.6 % (11.5-14.5)
[2018-04-29] MEDS: morphine 4 MG/ML VIAL IV ×2 (06:28→17:14)
[2018-04-29 06:44] LABS: ANION GAP 13 (5-13); BLOOD UREA NITROGEN 83 mg/dl (7-20); CALCIUM 9.1 mg/dl (8.4-10.2); CARBON DIOXIDE 30 mmol/L (21-31); CHLORIDE 100 mmol/L (97-110); CREATININE 3.44 mg/dl (0.61-1.24); Estimated GFR 18 mL/min (>60); GLUCOSE 196 mg/dl (70-220); POTASSIUM 4.9 mmol/L (3.5-5.1); SODIUM 143 mmol/L (135-144)
[2018-04-29] MEDS: FAMOTIDINE 20 MG INJ IV (08:21)
[2018-04-29] MEDS: INSULIN ASPART [NOVOLOG] 3 ML PEN SC ×7 (08:26→21:00)
[2018-04-29] MEDS: SEVELAMER CARBONATE 0.8 GM PKT PO (17:19)
[2018-04-29 19:16] LABS: CREATINE KINASE 162 IU/L (23-200)
[2018-04-29 19:29] LABS: CK INDEX 1.5
[2018-04-29] MEDS ORDERED: PREGABALIN 25 MG CAP PO (21:00)
[2018-04-29] MEDS: DOCUSATE SODIUM 250 MG CAP PO (21:18)
[2018-04-29] MEDS: ATORVASTATIN 80 MG TAB PO (21:18)
[2018-04-29] MEDS: PREGABALIN 50 MG CAP PO (21:18)
[2018-04-29] MEDS: INSULIN GLARGINE [LANTus] (100 UNITS/ML) SYG SC (21:23)
[2018-04-30] MEDS: ACCU-CHEK XX (01:12)
[2018-04-30 01:18] LABS: CREATINE KINASE 140 IU/L (23-200)
[2018-04-30 01:30] LABS: CK INDEX 1.7; CK-MB 2.31 ng/ml (0.0-2.4)
[2018-04-30] MEDS: ALBUTEROL/IPRATROPIUM (NEB) 3 ML AMP HHN (02:00)
[2018-04-30] MEDS: ZOLPIDEM 5 MG TAB PO (02:44)
[2018-04-30] MEDS: METHYLPREDNISOLONE 40 MG INJ IV (06:02)
[2018-04-30] MEDS: PANTOPRAZOLE (EC) 40 MG TAB PO (06:02)
[2018-04-30 06:08] LABS: ADD MAN DIFF? NO
[2018-04-30] MEDS: HEPARIN 5,000 UNIT/1 ML VIAL SC (06:14)
[2018-04-30 06:16] LABS: WHITE BLOOD COUNT 10.2 10^3/ul (4.8-10.8)
[2018-04-30 06:16] LABS: BASOPHILS % 0.2 % (0.0-2.0); HEMATOCRIT 41.1 % (42.0-52.0); HEMOGLOBIN 12.8 g/dl (14.0-18.0); LYMPHOCYTES # 0.9 10^3/ul (0.8-2.9); LYMPHOCYTES % 8.8 % (15.0-51.0); MEAN CORPUSCULAR HEMOGLOBIN 30.7 pg (29.0-33.0); MEAN CORPUSCULAR HGB CONC 31.1 g/dl (32.0-37.0); MEAN CORPUSCULAR VOLUME 98.6 fl (82.0-101.0); MEAN PLATELET VOLUME 10.8 fl (7.4-10.4); MONOCYTE # 0.5 10^3/ul (0.3-0.9); MONOCYTES % 4.7 % (0.0-11.0); NEUTROPHIL # 8.7 10^3/ul (1.6-7.5); NEUTROPHILS % 85.9 % (39.0-77.0); PLATELET COUNT 275 10^3/UL (140-415); RED BLOOD COUNT 4.17 10^6/ul (4.70-6.10); RED CELL DISTRIBUTION WIDTH 14.4 % (11.5-14.5)
[2018-04-30 06:43] LABS: CK-MB 2.19 ng/ml (0.0-2.4)
[2018-04-30 06:45] LABS: TROPONIN-I 0.896 ng/ml (0.000-0.120)
[2018-04-30 06:47] LABS: CK INDEX 1.5; CREATINE KINASE 142 IU/L (23-200)
[2018-04-30 07:02] LABS: ANION GAP 17 (5-13); BLOOD UREA NITROGEN 69 mg/dl (7-20); CALCIUM 9.2 mg/dl (8.4-10.2); CARBON DIOXIDE 27 mmol/L (21-31); CHLORIDE 97 mmol/L (97-110); CREATININE 3.26 mg/dl (0.61-1.24); Estimated GFR 19 mL/min (>60); GLUCOSE 139 mg/dl (70-220); MAGNESIUM 2.2 mg/dl (1.7-2.5); POTASSIUM 4.9 mmol/L (3.5-5.1); SODIUM 141 mmol/L (135-144)
[2018-04-30 07:03] LABS: CHOLESTEROL 228 mg/dl (100-200)
[2018-04-30 07:03] LABS: CHOL/HDL RATIO 4.1 RATIO; HDL CHOLESTEROL 55 mg/dl (30-78); LDL CHOLESTEROL,CALCULATED 114 mg/dl; TRIGLYCERIDES 297 mg/dl (0-149)
[2018-04-30] MEDS: INSULIN ASPART [NOVOLOG] 3 ML PEN SC ×2 (07:55)
[2018-04-30] MEDS: FENOFIBRATE 145 MG TAB PO (08:43)
[2018-04-30] MEDS: DOCUSATE SODIUM 250 MG CAP PO (08:44)
[2018-04-30] MEDS: CLOPIDOGREL 75 MG TAB PO (08:44)
[2018-04-30] MEDS: DULOXETINE 30 MG CAP DR PO (08:44)
[2018-04-30] MEDS: ASPIRIN (EC) 81 MG TAB PO (08:44)
[2018-04-30] MEDS: PREGABALIN 50 MG CAP PO (08:44)
[2018-04-30] MEDS: LORAZEPAM 1 MG TAB PO (08:44)
[2018-04-30] MEDS: BENAZEPRIL 10 MG TAB PO (08:45)
[2018-04-30] MEDS: FAMOTIDINE 20 MG INJ IV (08:45)
[2018-04-30] MEDS: SEVELAMER CARBONATE 0.8 GM PKT PO (08:46)
== END 2018-04-30 10:55 | disposition left against medical advice (07) | DRG 208 ==
LOC: E/R 00:42 → TEL 04-29 23:07 → ICU 01:22
PROC: 0BH18EZ Insertion of Endotracheal Airway into Trachea, Via Natural or Artificial Opening Endoscopic (ICD-10-PCS; principal; 2018-04-27)
PROC: 5A1945Z Respiratory Ventilation, 24-96 Consecutive Hours (ICD-10-PCS; 2018-04-27)
PROC: 02HV33Z Insertion of Infusion Device into Superior Vena Cava, Percutaneous Approach (ICD-10-PCS; 2018-04-27)
PROC: 5A1D70Z Performance of Urinary Filtration, Intermittent, Less than 6 Hours Per Day (ICD-10-PCS; 2018-04-27)
DX: J96.01 Acute respiratory failure with hypoxia (principal); N18.6 End stage renal disease; I50.43 Acute on chronic combined systolic (congestive) and diastolic (congestive) heart failure; K85.90 Acute pancreatitis without necrosis or infection, unspecified; I13.2 Hypertensive heart and chronic kidney disease with heart failure and with stage 5 chronic kidney disease, or end stage renal disease; I42.9 Cardiomyopathy, unspecified; J96.02 Acute respiratory failure with hypercapnia; E11.22 Type 2 diabetes mellitus with diabetic chronic kidney disease; J44.9 Chronic obstructive pulmonary disease, unspecified; D63.1 Anemia in chronic kidney disease; I25.10 Atherosclerotic heart disease of native coronary artery without angina pectoris; E66.9 Obesity, unspecified; G47.33 Obstructive sleep apnea (adult) (pediatric); E78.5 Hyperlipidemia, unspecified; Z99.2 Dependence on renal dialysis; Z68.39 Body mass index [BMI] 39.0-39.9, adult; Z95.810 Presence of automatic (implantable) cardiac defibrillator
CPT/HCPCS: 31500; 36415; 36600; 71045; 80048; 80053; 80061; 82550; 82553; 82803; 82962; 83036; 83690; 83735; 84100; 84484; 85025; 85610; 85730; 87081; 87340; 90935; 92526; 92610; 93005; 94002; 94003; 94640; 94644; 94664; 94770; 99291-25

== ENCOUNTER 2018-05-11 18:52 | Inpatient (IN) | payer MEDICARE, OTHER ==
[2018-05-11] MEDS: VANCOMYCIN 1 GM (PMX) 250 ML IVPB (19:59)
[2018-05-11 20:04] LABS: ADD MAN DIFF? NO
[2018-05-11 20:21] LABS: WHITE BLOOD COUNT 11.3 10^3/ul (4.8-10.8)
[2018-05-11 20:21] LABS: BASOPHIL # 0.1 10^3/ul (0.0-0.1); BASOPHILS % 0.5 % (0.0-2.0); EOSINOPHILS # 0.2 10^3/ul (0.0-0.5); EOSINOPHILS % 1.8 % (0.0-7.0); HEMATOCRIT 36.3 % (42.0-52.0); HEMOGLOBIN 11.1 g/dl (14.0-18.0); LYMPHOCYTES % 9.2 % (15.0-51.0); MEAN CORPUSCULAR HEMOGLOBIN 30.2 pg (29.0-33.0); MEAN CORPUSCULAR HGB CONC 30.6 g/dl (32.0-37.0); MEAN CORPUSCULAR VOLUME 98.9 fl (82.0-101.0); MEAN PLATELET VOLUME 10.7 fl (7.4-10.4); MONOCYTE # 0.6 10^3/ul (0.3-0.9); MONOCYTES % 4.9 % (0.0-11.0); NEUTROPHIL # 9.3 10^3/ul (1.6-7.5); NEUTROPHILS % 82.5 % (39.0-77.0); PLATELET COUNT 300 10^3/UL (140-415); RED BLOOD COUNT 3.67 10^6/ul (4.70-6.10)
[2018-05-11] MEDS: PIPER-TAZO 3.375 GM IV (PMX) 100 ML IVPB (20:23)
[2018-05-11 20:25] LABS: PT RATIO 0.9
[2018-05-11 20:28] LABS: ALANINE AMINOTRANSFERASE 21 IU/L (13-69); ALBUMIN 4.3 g/dl (3.3-4.9); ALBUMIN/GLOBULIN RATIO 1.26; ALKALINE PHOSPHATASE 117 IU/L (42-121); ANION GAP 14 (5-13); ASPARTATE AMINO TRANSFERASE 21 IU/L (15-46); BLOOD UREA NITROGEN 87 mg/dl (7-20); CALCIUM 9.2 mg/dl (8.4-10.2); CARBON DIOXIDE 33 mmol/L (21-31); CHLORIDE 88 mmol/L (97-110); CREATININE 3.91 mg/dl (0.61-1.24); Estimated GFR 16 mL/min (>60); POTASSIUM 4.2 mmol/L (3.5-5.1); SODIUM 135 mmol/L (135-144); TOTAL PROTEIN 7.7 g/dl (6.1-8.1)
[2018-05-11 20:31] LABS: LACTIC ACID 1.7 mmol/L (0.5-2.0)
[2018-05-11 20:38] LABS: GLUCOSE 504 mg/dl (70-220)
[2018-05-11 20:54] LABS: INR 0.88; PARTIAL THROMBOPLASTIN TIME 36.6 Sec (23.0-35.0)
[2018-05-11] MEDS ORDERED: ACETAMINOPHEN 325 MG TAB PO (23:00)
[2018-05-11] MEDS: morphine 4 MG/ML VIAL IV (23:28)
[2018-05-11] MEDS: ONDANSETRON 4 MG INJ IV (23:29)
[2018-05-12] MEDS ORDERED: VANCOMYCIN IV PER PHARMACY XX (01:00)
[2018-05-12] MEDS ORDERED: GLUCOSE GEL 15 GRAM TUBE PO ×2 (01:30)
[2018-05-12] MEDS ORDERED: DEXTROSE 50% 50 ML SYRINGE IV ×2 (01:30)
[2018-05-12] MEDS ORDERED: GLUCOSE GEL 15 GRAM TUBE BUCCAL (01:30)
[2018-05-12] MEDS ORDERED: GLUCAGON 1 MG INJ IM (01:30)
[2018-05-12] MEDS: morphine 4 MG/ML VIAL IV ×5 (01:55→19:00)
[2018-05-12] MEDS: ACCU-CHEK XX (02:00)
[2018-05-12] MEDS: INSULIN ASPART [NOVOLOG] 3 ML PEN SC ×5 (02:20→21:00)
[2018-05-12] MEDS: VANCOMYCIN 1 GM 250 ML IVPB (03:21)
[2018-05-12 06:12] LABS: ADD MAN DIFF? NO
[2018-05-12 06:37] LABS: WHITE BLOOD COUNT 7.5 10^3/ul (4.8-10.8)
[2018-05-12 06:37] LABS: BASOPHIL # 0.1 10^3/ul (0.0-0.1); BASOPHILS % 0.8 % (0.0-2.0); EOSINOPHILS # 0.2 10^3/ul (0.0-0.5); EOSINOPHILS % 3.2 % (0.0-7.0); HEMATOCRIT 34.7 % (42.0-52.0); HEMOGLOBIN 10.7 g/dl (14.0-18.0); LYMPHOCYTES # 0.8 10^3/ul (0.8-2.9); LYMPHOCYTES % 10.5 % (15.0-51.0); MEAN CORPUSCULAR HEMOGLOBIN 30.3 pg (29.0-33.0); MEAN CORPUSCULAR HGB CONC 30.8 g/dl (32.0-37.0); MEAN CORPUSCULAR VOLUME 98.3 fl (82.0-101.0); MEAN PLATELET VOLUME 10.7 fl (7.4-10.4); MONOCYTE # 0.4 10^3/ul (0.3-0.9); MONOCYTES % 5.9 % (0.0-11.0); NEUTROPHIL # 5.9 10^3/ul (1.6-7.5); NEUTROPHILS % 78.7 % (39.0-77.0); PLATELET COUNT 270 10^3/UL (140-415); RED BLOOD COUNT 3.53 10^6/ul (4.70-6.10); RED CELL DISTRIBUTION WIDTH 14.2 % (11.5-14.5)
[2018-05-12 07:11] LABS: ALANINE AMINOTRANSFERASE 17 IU/L (13-69); ALBUMIN/GLOBULIN RATIO 1.25; ALKALINE PHOSPHATASE 75 IU/L (42-121); ANION GAP 14 (5-13); ASPARTATE AMINO TRANSFERASE 20 IU/L (15-46); BILIRUBIN,INDIRECT 0.1 mg/dl (0-1.1); BILIRUBIN,TOTAL 0.1 mg/dl (0.2-1.3); BLOOD UREA NITROGEN 87 mg/dl (7-20); CALCIUM 8.8 mg/dl (8.4-10.2); CARBON DIOXIDE 34 mmol/L (21-31); CHLORIDE 91 mmol/L (97-110); CREATININE 3.63 mg/dl (0.61-1.24); Estimated GFR 17 mL/min (>60); GLUCOSE 257 mg/dl (70-220); POTASSIUM 3.9 mmol/L (3.5-5.1); SODIUM 139 mmol/L (135-144); TOTAL PROTEIN 7.2 g/dl (6.1-8.1)
[2018-05-12] MEDS: SILVER SULFADIAZINE 1% 25 GM CR TOP (14:36)
[2018-05-12] MEDS: SEVELAMER CARBONATE 0.8 GM PKT PO (17:52)
[2018-05-12] MEDS: DOCUSATE SODIUM 250 MG CAP PO (20:05)
[2018-05-12] MEDS: INSULIN GLARGINE [LANTus] (100 UNITS/ML) SYG SC (20:19)
[2018-05-12] MEDS: LORAZEPAM 2 MG INJ IV (20:51)
[2018-05-13] MEDS: ACCU-CHEK XX (02:00)
[2018-05-13 05:49] LABS: ADD MAN DIFF? NO
[2018-05-13 05:57] LABS: BASOPHIL # 0.1 10^3/ul (0.0-0.1); BASOPHILS % 0.6 % (0.0-2.0); EOSINOPHILS # 0.3 10^3/ul (0.0-0.5); EOSINOPHILS % 3.6 % (0.0-7.0); HEMATOCRIT 35.9 % (42.0-52.0); HEMOGLOBIN 10.8 g/dl (14.0-18.0); MEAN CORPUSCULAR HEMOGLOBIN 30.8 pg (29.0-33.0); MEAN CORPUSCULAR HGB CONC 30.1 g/dl (32.0-37.0); MEAN CORPUSCULAR VOLUME 102.3 fl (82.0-101.0); MEAN PLATELET VOLUME 10.6 fl (7.4-10.4); MONOCYTE # 0.5 10^3/ul (0.3-0.9); MONOCYTES % 6.4 % (0.0-11.0); NEUTROPHIL # 6.3 10^3/ul (1.6-7.5); NEUTROPHILS % 76.7 % (39.0-77.0); PLATELET COUNT 249 10^3/UL (140-415); RED BLOOD COUNT 3.51 10^6/ul (4.70-6.10); RED CELL DISTRIBUTION WIDTH 14.2 % (11.5-14.5)
[2018-05-13 05:57] LABS: WHITE BLOOD COUNT 8.2 10^3/ul (4.8-10.8)
[2018-05-13 06:07] LABS: ANION GAP 12 (5-13); BLOOD UREA NITROGEN 53 mg/dl (7-20); CALCIUM 8.7 mg/dl (8.4-10.2); CARBON DIOXIDE 33 mmol/L (21-31); CHLORIDE 95 mmol/L (97-110); CREATININE 3.02 mg/dl (0.61-1.24); Estimated GFR 21 mL/min (>60); GLUCOSE 258 mg/dl (70-220); POTASSIUM 4.6 mmol/L (3.5-5.1); SODIUM 140 mmol/L (135-144)
[2018-05-13] MEDS: PANTOPRAZOLE (EC) 40 MG TAB PO (06:07)
[2018-05-13] MEDS: INSULIN ASPART [NOVOLOG] 3 ML PEN SC ×7 (08:17→20:08)
[2018-05-13] MEDS: DOCUSATE SODIUM 250 MG CAP PO ×2 (08:49→20:08)
[2018-05-13] MEDS: ASPIRIN (EC) 81 MG TAB PO (08:49)
[2018-05-13] MEDS: FENOFIBRATE 145 MG TAB PO (08:51)
[2018-05-13] MEDS: CLOPIDOGREL 75 MG TAB PO (08:52)
[2018-05-13] MEDS: SEVELAMER CARBONATE 0.8 GM PKT PO ×3 (08:59→17:45)
[2018-05-13] MEDS: morphine 4 MG/ML VIAL IV ×2 (09:47→13:52)
[2018-05-13] MEDS: SILVER SULFADIAZINE 1% 25 GM CR TOP (09:52)
[2018-05-13] MEDS: morphine 2 MG INJ IV ×2 (16:56→20:09)
[2018-05-13 17:30] LABS: C-REACTIVE PROTEIN 4.5 mg/dl (0.0-0.9)
[2018-05-13 18:14] LABS: ERYTHROCYTE SEDIMENTATION RATE 79 mm/Hr (0-20)
[2018-05-13] MEDS: INSULIN GLARGINE [LANTus] (100 UNITS/ML) SYG SC (20:12)
[2018-05-13] MEDS: DIPHENHYDRAMINE 25 MG CAP PO (22:06)
[2018-05-13] MEDS: LORAZEPAM 2 MG INJ IV (22:29)
[2018-05-14] MEDS: ACCU-CHEK XX (02:00)
[2018-05-14] MEDS: morphine 4 MG/ML VIAL IV ×2 (02:39→10:55)
[2018-05-14] MEDS: HYDROmorphONE 1 MG/ML SYG IV ×3 (04:20→18:28)
[2018-05-14] MEDS: LORAZEPAM 2 MG INJ IV ×2 (04:21→23:29)
[2018-05-14 05:51] LABS: ADD MAN DIFF? NO
[2018-05-14 05:59] LABS: WHITE BLOOD COUNT 8.3 10^3/ul (4.8-10.8)
[2018-05-14 05:59] LABS: BASOPHIL # 0.1 10^3/ul (0.0-0.1); BASOPHILS % 0.6 % (0.0-2.0); EOSINOPHILS # 0.3 10^3/ul (0.0-0.5); EOSINOPHILS % 3.7 % (0.0-7.0); HEMATOCRIT 37.6 % (42.0-52.0); HEMOGLOBIN 11.1 g/dl (14.0-18.0); LYMPHOCYTES # 1.5 10^3/ul (0.8-2.9); LYMPHOCYTES % 18.5 % (15.0-51.0); MEAN CORPUSCULAR HEMOGLOBIN 30.2 pg (29.0-33.0); MEAN CORPUSCULAR HGB CONC 29.5 g/dl (32.0-37.0); MEAN CORPUSCULAR VOLUME 102.5 fl (82.0-101.0); MEAN PLATELET VOLUME 10.5 fl (7.4-10.4); MONOCYTE # 0.6 10^3/ul (0.3-0.9); MONOCYTES % 7.3 % (0.0-11.0); NEUTROPHIL # 5.8 10^3/ul (1.6-7.5); NEUTROPHILS % 69.3 % (39.0-77.0); PLATELET COUNT 231 10^3/UL (140-415); RED BLOOD COUNT 3.67 10^6/ul (4.70-6.10); RED CELL DISTRIBUTION WIDTH 14.1 % (11.5-14.5)
[2018-05-14] MEDS: PANTOPRAZOLE (EC) 40 MG TAB PO (06:00)
[2018-05-14 06:34] LABS: VANCOMYCIN,RANDOM 8.2 ug/ml
[2018-05-14 06:42] LABS: IRON 46 ug/dl (35-150)
[2018-05-14 06:51] LABS: % IRON SATURATION 14 % SAT (22-52); TOTAL IRON BINDING CAPACITY 339 ug/dl (241-421)
[2018-05-14 06:52] LABS: ANION GAP 13 (5-13); BLOOD UREA NITROGEN 74 mg/dl (7-20); CALCIUM 8.5 mg/dl (8.4-10.2); CARBON DIOXIDE 32 mmol/L (21-31); CHLORIDE 94 mmol/L (97-110); CREATININE 4.47 mg/dl (0.61-1.24); Estimated GFR 13 mL/min (>60); GLUCOSE 292 mg/dl (70-220); PHOSPHORUS 5.7 mg/dl (2.5-4.9); POTASSIUM 4.5 mmol/L (3.5-5.1); SODIUM 139 mmol/L (135-144)
[2018-05-14] MEDS: INSULIN ASPART [NOVOLOG] 3 ML PEN SC ×7 (08:30→21:31)
[2018-05-14] MEDS: SILVER SULFADIAZINE 1% 25 GM CR TOP (09:00)
[2018-05-14] MEDS: DOCUSATE SODIUM 250 MG CAP PO ×2 (09:15→21:29)
[2018-05-14] MEDS: ASPIRIN (EC) 81 MG TAB PO (09:15)
[2018-05-14] MEDS: FENOFIBRATE 145 MG TAB PO (09:16)
[2018-05-14] MEDS: SEVELAMER CARBONATE 0.8 GM PKT PO ×3 (09:16→17:31)
[2018-05-14] MEDS: CLOPIDOGREL 75 MG TAB PO (09:16)
[2018-05-14] MEDS: SODIUM HYPOCHLORITE (1/40) 1 LITER BTL IRR (13:38)
[2018-05-14] MEDS: COLLAGENASE 5 GM (UD JAR) TOP (13:38)
[2018-05-14] MEDS: SOD FERRIC GLUC COMPLX 125 MG in SOD CHLORIDE 0.9% 100 ML IVPB (13:38)
[2018-05-14] MEDS: VANCOMYCIN HCL 1.25 GM in SOD CHLORIDE 0.9% 250 ML IVPB (18:28)
[2018-05-14] MEDS: INSULIN GLARGINE [LANTus] (100 UNITS/ML) SYG SC (21:30)
[2018-05-15] MEDS: ACCU-CHEK XX (02:00)
[2018-05-15] MEDS: PANTOPRAZOLE (EC) 40 MG TAB PO (05:30)
[2018-05-15 05:58] LABS: ADD MAN DIFF? NO
[2018-05-15 06:26] LABS: BASOPHIL # 0.1 10^3/ul (0.0-0.1); BASOPHILS % 0.8 % (0.0-2.0); EOSINOPHILS # 0.3 10^3/ul (0.0-0.5); EOSINOPHILS % 3.2 % (0.0-7.0); HEMATOCRIT 38.5 % (42.0-52.0); HEMOGLOBIN 11.6 g/dl (14.0-18.0); LYMPHOCYTES # 1.2 10^3/ul (0.8-2.9); LYMPHOCYTES % 13.4 % (15.0-51.0); MEAN CORPUSCULAR HEMOGLOBIN 30.1 pg (29.0-33.0); MEAN CORPUSCULAR HGB CONC 30.1 g/dl (32.0-37.0); MEAN CORPUSCULAR VOLUME 99.7 fl (82.0-101.0); MEAN PLATELET VOLUME 10.9 fl (7.4-10.4); MONOCYTE # 0.5 10^3/ul (0.3-0.9); NEUTROPHIL # 6.5 10^3/ul (1.6-7.5); PLATELET COUNT 248 10^3/UL (140-415); RED BLOOD COUNT 3.86 10^6/ul (4.70-6.10); RED CELL DISTRIBUTION WIDTH 14.1 % (11.5-14.5)
[2018-05-15 06:26] LABS: WHITE BLOOD COUNT 8.6 10^3/ul (4.8-10.8)
[2018-05-15 06:45] LABS: ANION GAP 12 (5-13); BLOOD UREA NITROGEN 54 mg/dl (7-20); CARBON DIOXIDE 30 mmol/L (21-31); CHLORIDE 101 mmol/L (97-110); CREATININE 3.35 mg/dl (0.61-1.24); Estimated GFR 19 mL/min (>60); GLUCOSE 312 mg/dl (70-220); POTASSIUM 4.8 mmol/L (3.5-5.1); SODIUM 143 mmol/L (135-144)
[2018-05-15] MEDS: SEVELAMER CARBONATE 0.8 GM PKT PO ×3 (08:07→17:11)
[2018-05-15] MEDS: FENOFIBRATE 145 MG TAB PO (08:08)
[2018-05-15] MEDS: DOCUSATE SODIUM 250 MG CAP PO ×2 (08:08→21:13)
[2018-05-15] MEDS: CLOPIDOGREL 75 MG TAB PO (08:08)
[2018-05-15] MEDS: ASPIRIN (EC) 81 MG TAB PO (08:08)
[2018-05-15] MEDS: COLLAGENASE 5 GM (UD JAR) TOP (08:08)
[2018-05-15] MEDS: SODIUM HYPOCHLORITE (1/40) 1 LITER BTL IRR (08:09)
[2018-05-15] MEDS: INSULIN ASPART [NOVOLOG] 3 ML PEN SC ×7 (08:10→21:49)
[2018-05-15] MEDS: SILVER SULFADIAZINE 1% 25 GM CR TOP (08:12)
[2018-05-15] MEDS: HYDROmorphONE 1 MG/ML SYG IV ×3 (11:45→21:14)
[2018-05-15] MEDS: ALBUTEROL/IPRATROPIUM (NEB) 3 ML AMP HHN ×3 (12:57→23:15)
[2018-05-15] MEDS: GABAPENTIN 100 MG CAP PO ×2 (13:58→21:13)
[2018-05-15] MEDS: ARIPIPRAZOLE 2 MG TAB PO (13:58)
[2018-05-15] MEDS: SOD FERRIC GLUC COMPLX 125 MG in SOD CHLORIDE 0.9% 100 ML IVPB (14:00)
[2018-05-15 14:40] LABS: LACTIC ACID 0.8 mmol/L (0.5-2.0)
[2018-05-15] MEDS ORDERED: IOHEXOL 300MG/ML 150 ML BTL (19:21)
[2018-05-15] MEDS: IODIXANOL LOCM 50 ML BTL (20:01)
[2018-05-15] MEDS: IODIXANOL LOCM 100 ML BTL (20:02)
[2018-05-15] MEDS: SOD CHLORIDE 0.9% 100 ML (20:02)
[2018-05-15] MEDS: INSULIN GLARGINE [LANTus] (100 UNITS/ML) SYG SC (23:23)
[2018-05-16] MEDS: HYDROmorphONE 1 MG/ML SYG IV ×6 (01:18→21:42)
[2018-05-16] MEDS: ACCU-CHEK XX (02:00)
[2018-05-16 05:25] LABS: HEMOGLOBIN A1C 9.9 % (0-5.9)
[2018-05-16 05:29] LABS: VANCOMYCIN,RANDOM 12.5 ug/ml
[2018-05-16 05:29] LABS: ANION GAP 12 (5-13); BLOOD UREA NITROGEN 59 mg/dl (7-20); CALCIUM 8.8 mg/dl (8.4-10.2); CARBON DIOXIDE 29 mmol/L (21-31); CHLORIDE 100 mmol/L (97-110); Estimated GFR 19 mL/min (>60); GLUCOSE 253 mg/dl (70-220); POTASSIUM 4.6 mmol/L (3.5-5.1); SODIUM 141 mmol/L (135-144)
[2018-05-16 05:31] LABS: MAGNESIUM 1.9 mg/dl (1.7-2.5)
[2018-05-16 05:31] LABS: CHOL/HDL RATIO 5.6 RATIO; CHOLESTEROL 181 mg/dl (100-200); HDL CHOLESTEROL 32 mg/dl (30-78); LDL CHOLESTEROL,CALCULATED 103 mg/dl; TRIGLYCERIDES 230 mg/dl (0-149)
[2018-05-16] MEDS: PANTOPRAZOLE (EC) 40 MG TAB PO (05:50)
[2018-05-16] MEDS: INSULIN ASPART [NOVOLOG] 3 ML PEN SC ×7 (07:50→21:00)
[2018-05-16] MEDS: ASPIRIN (EC) 81 MG TAB PO (08:44)
[2018-05-16] MEDS: ARIPIPRAZOLE 2 MG TAB PO (08:44)
[2018-05-16] MEDS: GABAPENTIN 100 MG CAP PO ×3 (08:44→21:00)
[2018-05-16] MEDS: SEVELAMER CARBONATE 0.8 GM PKT PO ×3 (08:44→18:01)
[2018-05-16] MEDS: FENOFIBRATE 145 MG TAB PO (08:44)
[2018-05-16] MEDS: DOCUSATE SODIUM 250 MG CAP PO ×2 (08:44→21:00)
[2018-05-16] MEDS: CLOPIDOGREL 75 MG TAB PO (08:44)
[2018-05-16] MEDS: SILVER SULFADIAZINE 1% 25 GM CR TOP (08:45)
[2018-05-16] MEDS: SODIUM HYPOCHLORITE (1/40) 1 LITER BTL IRR (08:46)
[2018-05-16] MEDS: COLLAGENASE 5 GM (UD JAR) TOP (08:47)
[2018-05-16] MEDS: ALBUTEROL/IPRATROPIUM (NEB) 3 ML AMP HHN ×3 (09:03→23:09)
[2018-05-16] MEDS: SOD FERRIC GLUC COMPLX 125 MG in SOD CHLORIDE 0.9% 100 ML IVPB (13:04)
[2018-05-16] MEDS: VANCOMYCIN HCL 1.25 GM in SOD CHLORIDE 0.9% 250 ML IVPB (18:03)
[2018-05-16] MEDS: FUROSEMIDE 40 MG TAB PO (18:04)
[2018-05-16] MEDS: ATORVASTATIN 80 MG TAB PO (21:00)
[2018-05-16] MEDS: INSULIN GLARGINE [LANTus] (100 UNITS/ML) SYG SC (21:04)
[2018-05-16] MEDS: ONDANSETRON 4 MG INJ IV (21:42)
[2018-05-17] MEDS: HYDROmorphONE 1 MG/ML SYG IV ×5 (01:33→23:25)
[2018-05-17] MEDS: ACCU-CHEK XX (02:00)
[2018-05-17] MEDS: PANTOPRAZOLE (EC) 40 MG TAB PO (05:47)
[2018-05-17 06:11] LABS: ADD MAN DIFF? NO
[2018-05-17 06:17] LABS: WHITE BLOOD COUNT 8.5 10^3/ul (4.8-10.8)
[2018-05-17 06:17] LABS: BASOPHIL # 0.1 10^3/ul (0.0-0.1); BASOPHILS % 0.8 % (0.0-2.0); EOSINOPHILS # 0.3 10^3/ul (0.0-0.5); EOSINOPHILS % 3.5 % (0.0-7.0); HEMATOCRIT 34.6 % (42.0-52.0); HEMOGLOBIN 10.5 g/dl (14.0-18.0); LYMPHOCYTES # 1.4 10^3/ul (0.8-2.9); LYMPHOCYTES % 16.6 % (15.0-51.0); MEAN CORPUSCULAR HEMOGLOBIN 30.3 pg (29.0-33.0); MEAN CORPUSCULAR HGB CONC 30.3 g/dl (32.0-37.0); MEAN PLATELET VOLUME 10.7 fl (7.4-10.4); MONOCYTE # 0.6 10^3/ul (0.3-0.9); MONOCYTES % 7.3 % (0.0-11.0); NEUTROPHIL # 6.1 10^3/ul (1.6-7.5); NEUTROPHILS % 71.3 % (39.0-77.0); PLATELET COUNT 247 10^3/UL (140-415); RED BLOOD COUNT 3.46 10^6/ul (4.70-6.10)
[2018-05-17] MEDS: FUROSEMIDE 40 MG TAB PO ×2 (06:44→18:00)
[2018-05-17 06:55] LABS: ANION GAP 9 (5-13); BLOOD UREA NITROGEN 50 mg/dl (7-20); CALCIUM 8.6 mg/dl (8.4-10.2); CARBON DIOXIDE 29 mmol/L (21-31); CHLORIDE 100 mmol/L (97-110); CREATININE 3.54 mg/dl (0.61-1.24); Estimated GFR 18 mL/min (>60); GLUCOSE 291 mg/dl (70-220); SODIUM 138 mmol/L (135-144)
[2018-05-17] MEDS: ALBUTEROL/IPRATROPIUM (NEB) 3 ML AMP HHN ×2 (08:00→15:59)
[2018-05-17] MEDS: CLOPIDOGREL 75 MG TAB PO (08:22)
[2018-05-17] MEDS: ARIPIPRAZOLE 2 MG TAB PO (08:22)
[2018-05-17] MEDS: GABAPENTIN 100 MG CAP PO ×3 (08:23→21:01)
[2018-05-17] MEDS: ASPIRIN (EC) 81 MG TAB PO (08:23)
[2018-05-17] MEDS: DOCUSATE SODIUM 250 MG CAP PO ×2 (08:23→21:01)
[2018-05-17] MEDS: FENOFIBRATE 145 MG TAB PO (08:23)
[2018-05-17] MEDS: SILVER SULFADIAZINE 1% 25 GM CR TOP (08:24)
[2018-05-17] MEDS: SEVELAMER CARBONATE 0.8 GM PKT PO ×3 (08:24→18:00)
[2018-05-17] MEDS: COLLAGENASE 5 GM (UD JAR) TOP (08:24)
[2018-05-17] MEDS: SODIUM HYPOCHLORITE (1/40) 1 LITER BTL IRR (08:24)
[2018-05-17] MEDS: BENAZEPRIL 10 MG TAB PO (08:24)
[2018-05-17] MEDS: INSULIN ASPART [NOVOLOG] 3 ML PEN SC ×7 (08:26→21:04)
[2018-05-17] MEDS: SOD FERRIC GLUC COMPLX 125 MG in SOD CHLORIDE 0.9% 100 ML IVPB (12:40)
[2018-05-17] MEDS: morphine 2 MG INJ IV (14:39)
[2018-05-17] MEDS: ATORVASTATIN 80 MG TAB PO (21:00)
[2018-05-17] MEDS: INSULIN GLARGINE [LANTus] (100 UNITS/ML) SYG SC (21:01)
[2018-05-18] MEDS: ALBUTEROL/IPRATROPIUM (NEB) 3 ML AMP HHN ×3 (01:06→15:08)
[2018-05-18] MEDS: SOD CHLORIDE 0.9% 500 ML IV (01:56)
[2018-05-18] MEDS: ACCU-CHEK XX (02:00)
[2018-05-18] MEDS: HYDROmorphONE 1 MG/ML SYG IV ×5 (03:30→20:34)
[2018-05-18 06:23] LABS: ADD MAN DIFF? NO
[2018-05-18 06:30] LABS: WHITE BLOOD COUNT 8.6 10^3/ul (4.8-10.8)
[2018-05-18 06:30] LABS: BASOPHIL # 0.1 10^3/ul (0.0-0.1); BASOPHILS % 1.2 % (0.0-2.0); EOSINOPHILS # 0.4 10^3/ul (0.0-0.5); EOSINOPHILS % 4.4 % (0.0-7.0); HEMOGLOBIN 10.6 g/dl (14.0-18.0); LYMPHOCYTES # 1.5 10^3/ul (0.8-2.9); MEAN CORPUSCULAR HEMOGLOBIN 30.2 pg (29.0-33.0); MEAN CORPUSCULAR HGB CONC 30.3 g/dl (32.0-37.0); MEAN CORPUSCULAR VOLUME 99.7 fl (82.0-101.0); MEAN PLATELET VOLUME 10.8 fl (7.4-10.4); MONOCYTE # 0.6 10^3/ul (0.3-0.9); MONOCYTES % 7.1 % (0.0-11.0); PLATELET COUNT 256 10^3/UL (140-415); RED BLOOD COUNT 3.51 10^6/ul (4.70-6.10)
[2018-05-18] MEDS: FUROSEMIDE 40 MG TAB PO ×2 (06:43→17:46)
[2018-05-18] MEDS: PANTOPRAZOLE (EC) 40 MG TAB PO (06:43)
[2018-05-18 06:55] LABS: ANION GAP 14 (5-13); BLOOD UREA NITROGEN 75 mg/dl (7-20); CALCIUM 8.4 mg/dl (8.4-10.2); CARBON DIOXIDE 26 mmol/L (21-31); CHLORIDE 96 mmol/L (97-110); CREATININE 5.73 mg/dl (0.61-1.24); Estimated GFR 10 mL/min (>60); GLUCOSE 220 mg/dl (70-220); POTASSIUM 5.2 mmol/L (3.5-5.1); SODIUM 136 mmol/L (135-144)
[2018-05-18] MEDS: CLOPIDOGREL 75 MG TAB PO (08:08)
[2018-05-18] MEDS: ASPIRIN (EC) 81 MG TAB PO (08:08)
[2018-05-18] MEDS: DOCUSATE SODIUM 250 MG CAP PO ×2 (08:08→20:37)
[2018-05-18] MEDS: GABAPENTIN 100 MG CAP PO ×3 (08:09→20:37)
[2018-05-18] MEDS: SEVELAMER CARBONATE 0.8 GM PKT PO ×3 (08:09→17:45)
[2018-05-18] MEDS: SILVER SULFADIAZINE 1% 25 GM CR TOP (08:11)
[2018-05-18] MEDS: SODIUM HYPOCHLORITE (1/40) 1 LITER BTL IRR (08:12)
[2018-05-18] MEDS: COLLAGENASE 5 GM (UD JAR) TOP (08:12)
[2018-05-18] MEDS: INSULIN ASPART [NOVOLOG] 3 ML PEN SC ×7 (08:14→20:46)
[2018-05-18] MEDS: ARIPIPRAZOLE 2 MG TAB PO (08:22)
[2018-05-18] MEDS: FENOFIBRATE 145 MG TAB PO (08:22)
[2018-05-18] MEDS: SOD FERRIC GLUC COMPLX 125 MG in SOD CHLORIDE 0.9% 100 ML IVPB (13:15)
[2018-05-18] MEDS: ATORVASTATIN 80 MG TAB PO (20:37)
[2018-05-18] MEDS: INSULIN GLARGINE [LANTus] (100 UNITS/ML) SYG SC (20:45)
[2018-05-19] MEDS: ALBUTEROL/IPRATROPIUM (NEB) 3 ML AMP HHN ×3 (00:27→15:49)
[2018-05-19] MEDS: HYDROmorphONE 1 MG/ML SYG IV ×5 (00:41→18:22)
[2018-05-19] MEDS: ACCU-CHEK XX (02:00)
[2018-05-19] MEDS: PANTOPRAZOLE (EC) 40 MG TAB PO (05:19)
[2018-05-19 06:28] LABS: VANCOMYCIN,RANDOM 14.1 ug/ml
[2018-05-19] MEDS: FUROSEMIDE 40 MG TAB PO ×2 (06:41→18:10)
[2018-05-19] MEDS: ARIPIPRAZOLE 2 MG TAB PO (08:23)
[2018-05-19] MEDS: ASPIRIN (EC) 81 MG TAB PO (08:23)
[2018-05-19] MEDS: FENOFIBRATE 145 MG TAB PO (08:23)
[2018-05-19] MEDS: DOCUSATE SODIUM 250 MG CAP PO ×2 (08:23→20:16)
[2018-05-19] MEDS: GABAPENTIN 100 MG CAP PO ×3 (08:23→20:16)
[2018-05-19] MEDS: CLOPIDOGREL 75 MG TAB PO (08:23)
[2018-05-19] MEDS: SODIUM HYPOCHLORITE (1/40) 1 LITER BTL IRR (08:24)
[2018-05-19] MEDS: SEVELAMER CARBONATE 0.8 GM PKT PO ×3 (08:24→18:10)
[2018-05-19] MEDS: COLLAGENASE 5 GM (UD JAR) TOP (08:25)
[2018-05-19] MEDS: SILVER SULFADIAZINE 1% 25 GM CR TOP ×2 (08:25→08:47)
[2018-05-19] MEDS: INSULIN ASPART [NOVOLOG] 3 ML PEN SC ×7 (08:30→20:16)
[2018-05-19] MEDS: VANCOMYCIN 1 GM 250 ML IVPB (18:10)
[2018-05-19] MEDS: INSULIN GLARGINE [LANTus] (100 UNITS/ML) SYG SC (20:15)
[2018-05-19] MEDS: ATORVASTATIN 80 MG TAB PO (20:16)
== END 2018-05-19 20:50 | disposition home health service (06) | DRG 622 ==
LOC: 2NE 23:38 → E/R 18:52 → 2NE 05-13 15:50
PROC: 5A1D70Z Performance of Urinary Filtration, Intermittent, Less than 6 Hours Per Day (ICD-10-PCS; 2018-05-12)
PROC: 0JBR0ZZ Excision of Left Foot Subcutaneous Tissue and Fascia, Open Approach (ICD-10-PCS; principal; 2018-05-13)
DX: E11.621 Type 2 diabetes mellitus with foot ulcer (principal); I50.43 Acute on chronic combined systolic (congestive) and diastolic (congestive) heart failure; L03.116 Cellulitis of left lower limb; I13.2 Hypertensive heart and chronic kidney disease with heart failure and with stage 5 chronic kidney disease, or end stage renal disease; N18.6 End stage renal disease; E11.65 Type 2 diabetes mellitus with hyperglycemia; T25.222A Burn of second degree of left foot, initial encounter; Z99.2 Dependence on renal dialysis; E11.22 Type 2 diabetes mellitus with diabetic chronic kidney disease; E11.42 Type 2 diabetes mellitus with diabetic polyneuropathy; Z95.810 Presence of automatic (implantable) cardiac defibrillator; Z68.38 Body mass index [BMI] 38.0-38.9, adult; E11.51 Type 2 diabetes mellitus with diabetic peripheral angiopathy without gangrene; X12.XXXA Contact with other hot fluids, initial encounter; Y92.009 Unspecified place in unspecified non-institutional (private) residence as the place of occurrence of the external cause; E11.21 Type 2 diabetes mellitus with diabetic nephropathy; I25.10 Atherosclerotic heart disease of native coronary artery without angina pectoris; Z98.61 Coronary angioplasty status; R41.3 Other amnesia; E66.01 Morbid (severe) obesity due to excess calories; D63.8 Anemia in other chronic diseases classified elsewhere; K59.00 Constipation, unspecified; Z87.891 Personal history of nicotine dependence; I25.5 Ischemic cardiomyopathy; Z89.431 Acquired absence of right foot; E11.39 Type 2 diabetes mellitus with other diabetic ophthalmic complication; G40.909 Epilepsy, unspecified, not intractable, without status epilepticus; F41.9 Anxiety disorder, unspecified; Z91.19 Patient's noncompliance with other medical treatment and regimen; F31.9 Bipolar disorder, unspecified
CPT/HCPCS: 36415; 70551; 71045; 73630-LT; 75635; 80048; 80053; 80061; 80202; 82728; 82962; 83036; 83540; 83605; 83735; 84100; 85025; 85610; 85651; 85730; 86140; 87040; 87070; 90935; 93922; 94640; 94664; 96374; 96375; 97110; 97163; 97530; 99285-25

== ENCOUNTER 2018-06-03 18:13 | Inpatient (IN) | payer MEDICARE, OTHER ==
[2018-06-03] MEDS: morphine 4 MG/ML VIAL IV ×2 (19:19→20:47)
[2018-06-03 19:55] LABS: ADD MAN DIFF? NO
[2018-06-03 19:57] LABS: WHITE BLOOD COUNT 17.6 10^3/ul (4.8-10.8)
[2018-06-03 19:57] LABS: BASOPHIL # 0.1 10^3/ul (0.0-0.1); BASOPHILS % 0.3 % (0.0-2.0); EOSINOPHILS # 0.1 10^3/ul (0.0-0.5); EOSINOPHILS % 0.4 % (0.0-7.0); HEMATOCRIT 41.9 % (42.0-52.0); HEMOGLOBIN 13.1 g/dl (14.0-18.0); LYMPHOCYTES % 5.6 % (15.0-51.0); MEAN CORPUSCULAR HEMOGLOBIN 30.3 pg (29.0-33.0); MEAN CORPUSCULAR HGB CONC 31.3 g/dl (32.0-37.0); MEAN PLATELET VOLUME 11.8 fl (7.4-10.4); MONOCYTES % 5.9 % (0.0-11.0); NEUTROPHIL # 15.3 10^3/ul (1.6-7.5); PLATELET COUNT 193 10^3/UL (140-415); RED BLOOD COUNT 4.32 10^6/ul (4.70-6.10); RED CELL DISTRIBUTION WIDTH 14.6 % (11.5-14.5)
[2018-06-03 20:25] LABS: ANION GAP 13 (5-13); BLOOD UREA NITROGEN 80 mg/dl (7-20); CALCIUM 9.5 mg/dl (8.4-10.2); CARBON DIOXIDE 33 mmol/L (21-31); CHLORIDE 90 mmol/L (97-110); CREATININE 3.88 mg/dl (0.61-1.24); Estimated GFR 16 mL/min (>60); GLUCOSE 314 mg/dl (70-220); POTASSIUM 4.2 mmol/L (3.5-5.1); SODIUM 136 mmol/L (135-144)
[2018-06-03 20:37] LABS: TROPONIN-I 0.051 ng/ml (0.000-0.120)
[2018-06-03] MEDS ORDERED: ONDANSETRON 4 MG INJ IV (21:00)
[2018-06-03] MEDS ORDERED: ACETAMINOPHEN 325 MG TAB PO (21:00)
[2018-06-03] MEDS: HYDROmorphONE 0.5 MG/0.5 ML SYG IV (22:27)
[2018-06-04] MEDS ORDERED: ALBUTEROL/IPRATROPIUM (NEB) 3 ML AMP HHN (01:00)
[2018-06-04] MEDS ORDERED: LACTULOSE 30ML CUP PO (01:00)
[2018-06-04] MEDS ORDERED: ONDANSETRON 4 MG TAB PO (01:00)
[2018-06-04] MEDS: CYCLOBENZAPRINE 10 MG TAB PO ×4 (01:13→18:30)
[2018-06-04] MEDS: morphine 2 MG INJ IV ×5 (01:35→22:14)
[2018-06-04 01:42] LABS: CREATINE KINASE 53 IU/L (23-200)
[2018-06-04 01:53] LABS: CK INDEX 3.7; CK-MB 1.98 ng/ml (0.0-2.4); TROPONIN-I 0.074 ng/ml (0.000-0.120)
[2018-06-04] MEDS: PIPER-TAZO 3.375 GM IV (PMX) 100 ML IVPB (03:24)
[2018-06-04] MEDS: VANCOMYCIN 1 GM (PMX) 250 ML IVPB (04:12)
[2018-06-04] MEDS: FUROSEMIDE 40 MG TAB PO ×2 (06:20→17:09)
[2018-06-04 07:45] LABS: CREATINE KINASE 39 IU/L (23-200)
[2018-06-04 07:56] LABS: CK INDEX 3.6; CK-MB 1.39 ng/ml (0.0-2.4); TROPONIN-I 0.075 ng/ml (0.000-0.120)
[2018-06-04] MEDS: FLUOCINONIDE 0.05% CR 30GM TUBE TOP (09:00)
[2018-06-04] MEDS ORDERED: APIXABAN 5 MG TABLET PO (09:00)
[2018-06-04] MEDS: ECONAZOLE TOP (09:00)
[2018-06-04] MEDS ORDERED: ASPIRIN (EC) 81 MG TAB PO (09:00)
[2018-06-04] MEDS: BENAZEPRIL 10 MG TAB PO (09:00)
[2018-06-04] MEDS: SEVELAMER CARBONATE 0.8 GM PKT PO ×3 (09:49→17:09)
[2018-06-04] MEDS: FLUTICASONE/VILANTEROL 100-25 INH (09:54)
[2018-06-04] MEDS: FISH OIL 1,000 MG CAP PO ×2 (09:55→20:23)
[2018-06-04] MEDS: DOCUSATE SODIUM 250 MG CAP PO ×2 (09:55→20:23)
[2018-06-04] MEDS: AMITRIPTYLINE 50 MG TAB PO (09:56)
[2018-06-04] MEDS: DULOXETINE 30 MG CAP DR PO (09:57)
[2018-06-04] MEDS: FENOFIBRATE 145 MG TAB PO (10:03)
[2018-06-04] MEDS: PREGABALIN 50 MG CAP PO ×2 (10:03→20:24)
[2018-06-04] MEDS: CLOPIDOGREL 75 MG TAB PO (10:03)
[2018-06-04] MEDS: EZETIMIBE 10 MG TAB PO (10:04)
[2018-06-04] MEDS: METOLAZONE 10 MG TAB PO (10:10)
[2018-06-04] MEDS: INSULIN ASPART [NOVOLOG] 3 ML PEN SC ×3 (10:12→17:17)
[2018-06-04 13:11] LABS: ADD MAN DIFF? NO
[2018-06-04 13:18] LABS: WHITE BLOOD COUNT 10.6 10^3/ul (4.8-10.8)
[2018-06-04 13:18] LABS: BASOPHIL # 0.1 10^3/ul (0.0-0.1); BASOPHILS % 0.6 % (0.0-2.0); EOSINOPHILS # 0.1 10^3/ul (0.0-0.5); EOSINOPHILS % 0.8 % (0.0-7.0); HEMATOCRIT 40.5 % (42.0-52.0); HEMOGLOBIN 12.4 g/dl (14.0-18.0); LYMPHOCYTES % 9.2 % (15.0-51.0); MEAN CORPUSCULAR HEMOGLOBIN 30.1 pg (29.0-33.0); MEAN CORPUSCULAR HGB CONC 30.6 g/dl (32.0-37.0); MEAN CORPUSCULAR VOLUME 98.3 fl (82.0-101.0); MEAN PLATELET VOLUME 11.4 fl (7.4-10.4); MONOCYTE # 0.6 10^3/ul (0.3-0.9); MONOCYTES % 5.7 % (0.0-11.0); NEUTROPHIL # 8.7 10^3/ul (1.6-7.5); NEUTROPHILS % 82.7 % (39.0-77.0); PLATELET COUNT 157 10^3/UL (140-415); RED BLOOD COUNT 4.12 10^6/ul (4.70-6.10); RED CELL DISTRIBUTION WIDTH 14.5 % (11.5-14.5)
[2018-06-04 13:33] LABS: ANION GAP 15 (5-13); BLOOD UREA NITROGEN 91 mg/dl (7-20); CALCIUM 9.1 mg/dl (8.4-10.2); CARBON DIOXIDE 29 mmol/L (21-31); CHLORIDE 90 mmol/L (97-110); CREATININE 4.04 mg/dl (0.61-1.24); Estimated GFR 15 mL/min (>60); GLUCOSE 186 mg/dl (70-220); POTASSIUM 4.6 mmol/L (3.5-5.1); SODIUM 134 mmol/L (135-144)
[2018-06-04 18:28] LABS: HEMOGLOBIN A1C 10.6 % (0-5.9)
[2018-06-04 18:47] LABS: HEPATITIS B SURFACE ANTIGEN NEGATIVE (NEGATIVE)
[2018-06-04] MEDS: TAMSULOSIN (SR) 0.4 MG CAP PO (20:23)
[2018-06-04] MEDS: ATORVASTATIN 80 MG TAB PO (20:24)
[2018-06-04] MEDS ORDERED: SPECIAL NON-STANDARD MEDICATION SC (21:00)
[2018-06-05] MEDS: CYCLOBENZAPRINE 10 MG TAB PO ×4 (00:28→21:48)
[2018-06-05] MEDS: FUROSEMIDE 40 MG TAB PO ×2 (06:16→18:00)
[2018-06-05] MEDS: INSULIN ASPART [NOVOLOG] 3 ML PEN SC ×4 (08:18→21:04)
[2018-06-05] MEDS: METOLAZONE 10 MG TAB PO (08:31)
[2018-06-05] MEDS: DULOXETINE 30 MG CAP DR PO (08:31)
[2018-06-05] MEDS: DOCUSATE SODIUM 250 MG CAP PO ×2 (08:31→21:48)
[2018-06-05] MEDS: BENAZEPRIL 10 MG TAB PO (08:31)
[2018-06-05] MEDS: EZETIMIBE 10 MG TAB PO (08:31)
[2018-06-05] MEDS: FISH OIL 1,000 MG CAP PO ×2 (08:31→20:26)
[2018-06-05] MEDS: CLOPIDOGREL 75 MG TAB PO (08:31)
[2018-06-05] MEDS: SEVELAMER CARBONATE 0.8 GM PKT PO ×3 (08:32→20:26)
[2018-06-05] MEDS: PREGABALIN 50 MG CAP PO ×2 (08:32→20:26)
[2018-06-05] MEDS: AMITRIPTYLINE 50 MG TAB PO (08:32)
[2018-06-05] MEDS: FENOFIBRATE 145 MG TAB PO (08:32)
[2018-06-05] MEDS: FLUTICASONE/VILANTEROL 100-25 INH (08:33)
[2018-06-05] MEDS: ECONAZOLE TOP (08:34)
[2018-06-05] MEDS: morphine 2 MG INJ IV ×2 (08:35→12:49)
[2018-06-05] MEDS: FLUOCINONIDE 0.05% CR 30GM TUBE TOP (08:35)
[2018-06-05 08:37] LABS: ADD MAN DIFF? NO
[2018-06-05 08:41] LABS: BASOPHIL # 0.1 10^3/ul (0.0-0.1); BASOPHILS % 0.5 % (0.0-2.0); EOSINOPHILS # 0.1 10^3/ul (0.0-0.5); EOSINOPHILS % 0.8 % (0.0-7.0); HEMATOCRIT 38.8 % (42.0-52.0); HEMOGLOBIN 11.7 g/dl (14.0-18.0); LYMPHOCYTES # 1.1 10^3/ul (0.8-2.9); LYMPHOCYTES % 9.5 % (15.0-51.0); MEAN CORPUSCULAR HEMOGLOBIN 29.5 pg (29.0-33.0); MEAN CORPUSCULAR HGB CONC 30.2 g/dl (32.0-37.0); MEAN PLATELET VOLUME 11.6 fl (7.4-10.4); MONOCYTE # 0.9 10^3/ul (0.3-0.9); MONOCYTES % 7.4 % (0.0-11.0); NEUTROPHIL # 9.5 10^3/ul (1.6-7.5); PLATELET COUNT 203 10^3/UL (140-415); RED BLOOD COUNT 3.96 10^6/ul (4.70-6.10); RED CELL DISTRIBUTION WIDTH 14.6 % (11.5-14.5)
[2018-06-05 08:41] LABS: WHITE BLOOD COUNT 11.8 10^3/ul (4.8-10.8)
[2018-06-05 08:59] LABS: ANION GAP 13 (5-13); BLOOD UREA NITROGEN 60 mg/dl (7-20); CALCIUM 9.3 mg/dl (8.4-10.2); CARBON DIOXIDE 32 mmol/L (21-31); CHLORIDE 89 mmol/L (97-110); CREATININE 3.88 mg/dl (0.61-1.24); Estimated GFR 16 mL/min (>60); GLUCOSE 360 mg/dl (70-220); PHOSPHORUS 4.8 mg/dl (2.5-4.9); POTASSIUM 4.9 mmol/L (3.5-5.1); SODIUM 134 mmol/L (135-144)
[2018-06-05 09:03] LABS: IRON 25 ug/dl (35-150)
[2018-06-05 09:13] LABS: % IRON SATURATION 8 % SAT (22-52); TOTAL IRON BINDING CAPACITY 298 ug/dl (241-421)
[2018-06-05] MEDS: SOD FERRIC GLUC COMPLX 125 MG in SOD CHLORIDE 0.9% 100 ML IVPB (12:48)
[2018-06-05] MEDS ORDERED: FENTAnyl 50 MCG/ML VIAL (16:18)
[2018-06-05] MEDS ORDERED: NORepinephrine 8MG/250 ML (PMX 250 ML ×2 (16:49→19:13)
[2018-06-05] MEDS ORDERED: LIDOCAINE 1% (MDV) 20 ML INJ (16:50)
[2018-06-05] MEDS ORDERED: IODIXANOL LOCM 100 ML BTL (16:50)
[2018-06-05] MEDS: TAMSULOSIN (SR) 0.4 MG CAP PO (20:27)
[2018-06-05] MEDS: CEFAZOLIN 1 GM/50 ML (PMX) 50 ML IVPB (20:27)
[2018-06-05] MEDS: ATORVASTATIN 80 MG TAB PO (20:27)
[2018-06-05] MEDS: NORepinephrine 8MG/250 ML (PMX 250 ML IV (20:40)
[2018-06-06] MEDS: CYCLOBENZAPRINE 10 MG TAB PO ×5 (00:39→22:56)
[2018-06-06 05:12] LABS: ADD MAN DIFF? NO
[2018-06-06 05:17] LABS: BASOPHILS % 0.3 % (0.0-2.0); EOSINOPHILS # 0.2 10^3/ul (0.0-0.5); EOSINOPHILS % 1.6 % (0.0-7.0); HEMATOCRIT 34.7 % (42.0-52.0); HEMOGLOBIN 10.6 g/dl (14.0-18.0); LYMPHOCYTES # 1.5 10^3/ul (0.8-2.9); LYMPHOCYTES % 12.5 % (15.0-51.0); MEAN CORPUSCULAR HEMOGLOBIN 29.9 pg (29.0-33.0); MEAN CORPUSCULAR HGB CONC 30.5 g/dl (32.0-37.0); MEAN PLATELET VOLUME 11.2 fl (7.4-10.4); MONOCYTE # 1.1 10^3/ul (0.3-0.9); MONOCYTES % 9.1 % (0.0-11.0); NEUTROPHIL # 9.2 10^3/ul (1.6-7.5); NEUTROPHILS % 75.7 % (39.0-77.0); PLATELET COUNT 237 10^3/UL (140-415); RED BLOOD COUNT 3.54 10^6/ul (4.70-6.10); RED CELL DISTRIBUTION WIDTH 14.6 % (11.5-14.5)
[2018-06-06 05:17] LABS: WHITE BLOOD COUNT 12.1 10^3/ul (4.8-10.8)
[2018-06-06 05:31] LABS: ANION GAP 15 (5-13); BLOOD UREA NITROGEN 80 mg/dl (7-20); CALCIUM 9.3 mg/dl (8.4-10.2); CARBON DIOXIDE 26 mmol/L (21-31); CHLORIDE 93 mmol/L (97-110); Estimated GFR 9 mL/min (>60); GLUCOSE 177 mg/dl (70-220); POTASSIUM 4.4 mmol/L (3.5-5.1); SODIUM 134 mmol/L (135-144)
[2018-06-06] MEDS: FUROSEMIDE 40 MG TAB PO (05:51)
[2018-06-06] MEDS: SEVELAMER CARBONATE 0.8 GM PKT PO ×3 (08:00→19:03)
[2018-06-06] MEDS ORDERED: METOLAZONE 5 MG TAB PO (09:00)
[2018-06-06] MEDS: AMITRIPTYLINE 50 MG TAB PO (09:00)
[2018-06-06] MEDS: INSULIN ASPART [NOVOLOG] 3 ML PEN SC ×3 (09:06→19:00)
[2018-06-06] MEDS: SOD CHLORIDE 0.9% 500 ML IV (09:14)
[2018-06-06] MEDS: DULOXETINE 30 MG CAP DR PO (09:49)
[2018-06-06] MEDS: FENOFIBRATE 145 MG TAB PO (09:49)
[2018-06-06] MEDS: ASPIRIN 81 MG TAB PO (09:49)
[2018-06-06] MEDS: DOCUSATE SODIUM 250 MG CAP PO ×2 (09:49→20:33)
[2018-06-06] MEDS: PREGABALIN 50 MG CAP PO ×2 (09:49→20:33)
[2018-06-06] MEDS: EZETIMIBE 10 MG TAB PO (09:49)
[2018-06-06] MEDS: FISH OIL 1,000 MG CAP PO ×2 (09:49→20:33)
[2018-06-06] MEDS: FLUOCINONIDE 0.05% CR 30GM TUBE TOP (09:50)
[2018-06-06] MEDS: FLUTICASONE/VILANTEROL 100-25 INH (09:50)
[2018-06-06] MEDS: ECONAZOLE TOP (09:50)
[2018-06-06] MEDS: morphine 2 MG INJ IV ×3 (10:00→23:00)
[2018-06-06] MEDS: CEFAZOLIN 1 GM/50 ML (PMX) 50 ML IVPB ×2 (11:01→20:33)
[2018-06-06] MEDS: SOD FERRIC GLUC COMPLX 125 MG in SOD CHLORIDE 0.9% 100 ML IVPB (14:57)
[2018-06-06] MEDS: ATORVASTATIN 80 MG TAB PO (20:33)
[2018-06-06] MEDS: TAMSULOSIN (SR) 0.4 MG CAP PO (20:33)
[2018-06-07] MEDS: morphine 2 MG INJ IV ×3 (01:54→20:58)
[2018-06-07 05:00] LABS: ADD MAN DIFF? NO
[2018-06-07 05:05] LABS: WHITE BLOOD COUNT 8.4 10^3/ul (4.8-10.8)
[2018-06-07 05:05] LABS: BASOPHIL # 0.1 10^3/ul (0.0-0.1); BASOPHILS % 0.8 % (0.0-2.0); EOSINOPHILS # 0.3 10^3/ul (0.0-0.5); EOSINOPHILS % 3.6 % (0.0-7.0); HEMATOCRIT 32.1 % (42.0-52.0); HEMOGLOBIN 9.6 g/dl (14.0-18.0); LYMPHOCYTES # 1.4 10^3/ul (0.8-2.9); LYMPHOCYTES % 16.3 % (15.0-51.0); MEAN CORPUSCULAR HEMOGLOBIN 29.4 pg (29.0-33.0); MEAN CORPUSCULAR HGB CONC 29.9 g/dl (32.0-37.0); MEAN CORPUSCULAR VOLUME 98.5 fl (82.0-101.0); MEAN PLATELET VOLUME 11.3 fl (7.4-10.4); MONOCYTE # 0.8 10^3/ul (0.3-0.9); MONOCYTES % 9.3 % (0.0-11.0); NEUTROPHIL # 5.8 10^3/ul (1.6-7.5); PLATELET COUNT 236 10^3/UL (140-415); RED BLOOD COUNT 3.26 10^6/ul (4.70-6.10); RED CELL DISTRIBUTION WIDTH 14.6 % (11.5-14.5)
[2018-06-07 05:41] LABS: ANION GAP 9 (5-13); BLOOD UREA NITROGEN 59 mg/dl (7-20); CALCIUM 9.1 mg/dl (8.4-10.2); CARBON DIOXIDE 31 mmol/L (21-31); CHLORIDE 96 mmol/L (97-110); CREATININE 4.65 mg/dl (0.61-1.24); Estimated GFR 13 mL/min (>60); GLUCOSE 195 mg/dl (70-220); PHOSPHORUS 5.9 mg/dl (2.5-4.9); POTASSIUM 4.3 mmol/L (3.5-5.1); SODIUM 136 mmol/L (135-144)
[2018-06-07] MEDS: CYCLOBENZAPRINE 10 MG TAB PO ×3 (06:29→17:27)
[2018-06-07] MEDS: INSULIN ASPART [NOVOLOG] 3 ML PEN SC ×3 (08:38→17:33)
[2018-06-07] MEDS: ECONAZOLE TOP ×2 (09:15→14:17)
[2018-06-07] MEDS: EZETIMIBE 10 MG TAB PO (09:16)
[2018-06-07] MEDS: SEVELAMER CARBONATE 0.8 GM PKT PO ×3 (09:16→17:28)
[2018-06-07] MEDS: DOCUSATE SODIUM 250 MG CAP PO ×2 (09:16→20:11)
[2018-06-07] MEDS: FENOFIBRATE 145 MG TAB PO (09:16)
[2018-06-07] MEDS: FISH OIL 1,000 MG CAP PO ×2 (09:16→20:11)
[2018-06-07] MEDS: AMITRIPTYLINE 50 MG TAB PO (09:16)
[2018-06-07] MEDS: ASPIRIN 81 MG TAB PO (09:16)
[2018-06-07] MEDS: FLUTICASONE/VILANTEROL 100-25 INH (09:16)
[2018-06-07] MEDS: DULOXETINE 30 MG CAP DR PO (09:17)
[2018-06-07] MEDS: CEFAZOLIN 1 GM/50 ML (PMX) 50 ML IVPB ×2 (09:18→20:11)
[2018-06-07] MEDS: PREGABALIN 50 MG CAP PO ×2 (09:19→20:12)
[2018-06-07] MEDS: SOD FERRIC GLUC COMPLX 125 MG in SOD CHLORIDE 0.9% 100 ML IVPB (13:30)
[2018-06-07] MEDS: FLUOCINONIDE 0.05% CR 30GM TUBE TOP (14:17)
[2018-06-07] MEDS ORDERED: HEPARIN 1000 UNITS/ML 10 ML INJ CATHETER (16:30)
[2018-06-07] MEDS: ATORVASTATIN 80 MG TAB PO (20:11)
[2018-06-07] MEDS: TAMSULOSIN (SR) 0.4 MG CAP PO (20:11)
[2018-06-08] MEDS: CYCLOBENZAPRINE 10 MG TAB PO ×5 (00:11→23:30)
[2018-06-08 05:12] LABS: ADD MAN DIFF? NO
[2018-06-08] MEDS: morphine 2 MG INJ IV ×2 (05:13→12:14)
[2018-06-08 05:19] LABS: BASOPHIL # 0.1 10^3/ul (0.0-0.1); BASOPHILS % 0.7 % (0.0-2.0); EOSINOPHILS # 0.4 10^3/ul (0.0-0.5); EOSINOPHILS % 4.6 % (0.0-7.0); HEMATOCRIT 31.6 % (42.0-52.0); HEMOGLOBIN 9.4 g/dl (14.0-18.0); LYMPHOCYTES # 1.2 10^3/ul (0.8-2.9); LYMPHOCYTES % 15.2 % (15.0-51.0); MEAN CORPUSCULAR HEMOGLOBIN 29.7 pg (29.0-33.0); MEAN CORPUSCULAR HGB CONC 29.7 g/dl (32.0-37.0); MEAN CORPUSCULAR VOLUME 99.7 fl (82.0-101.0); MONOCYTE # 0.6 10^3/ul (0.3-0.9); MONOCYTES % 7.8 % (0.0-11.0); NEUTROPHIL # 5.7 10^3/ul (1.6-7.5); NEUTROPHILS % 70.7 % (39.0-77.0); PLATELET COUNT 245 10^3/UL (140-415); RED BLOOD COUNT 3.17 10^6/ul (4.70-6.10); RED CELL DISTRIBUTION WIDTH 14.4 % (11.5-14.5)
[2018-06-08 05:52] LABS: ALANINE AMINOTRANSFERASE 6 IU/L (13-69); ALBUMIN 3.8 g/dl (3.3-4.9); ALBUMIN/GLOBULIN RATIO 1.18; ALKALINE PHOSPHATASE 88 IU/L (42-121); ANION GAP 14 (5-13); ASPARTATE AMINO TRANSFERASE 27 IU/L (15-46); BILIRUBIN,INDIRECT 0.1 mg/dl (0-1.1); BILIRUBIN,TOTAL 0.1 mg/dl (0.2-1.3); BLOOD UREA NITROGEN 73 mg/dl (7-20); CALCIUM 8.8 mg/dl (8.4-10.2); CARBON DIOXIDE 30 mmol/L (21-31); CHLORIDE 91 mmol/L (97-110); Estimated GFR 9 mL/min (>60); GLUCOSE 179 mg/dl (70-220); POTASSIUM 4.7 mmol/L (3.5-5.1); SODIUM 135 mmol/L (135-144)
[2018-06-08] MEDS: INSULIN ASPART [NOVOLOG] 3 ML PEN SC ×3 (08:27→17:25)
[2018-06-08] MEDS: ECONAZOLE TOP (08:59)
[2018-06-08] MEDS: SEVELAMER CARBONATE 0.8 GM PKT PO ×3 (09:00→17:19)
[2018-06-08] MEDS: AMITRIPTYLINE 50 MG TAB PO (09:00)
[2018-06-08] MEDS: DOCUSATE SODIUM 250 MG CAP PO ×2 (09:00→21:08)
[2018-06-08] MEDS: FISH OIL 1,000 MG CAP PO ×2 (09:01→21:07)
[2018-06-08] MEDS: FLUTICASONE/VILANTEROL 100-25 INH (09:01)
[2018-06-08] MEDS: CEFAZOLIN 1 GM/50 ML (PMX) 50 ML IVPB (09:01)
[2018-06-08] MEDS: EZETIMIBE 10 MG TAB PO (09:01)
[2018-06-08] MEDS: FLUOCINONIDE 0.05% CR 30GM TUBE TOP (09:01)
[2018-06-08] MEDS: ASPIRIN 81 MG TAB PO (09:01)
[2018-06-08] MEDS: DULOXETINE 30 MG CAP DR PO (09:01)
[2018-06-08] MEDS: PREGABALIN 50 MG CAP PO ×2 (09:04→21:08)
[2018-06-08] MEDS: FENOFIBRATE 145 MG TAB PO (12:07)
[2018-06-08] MEDS: ALBUMIN HUMAN 25% 50 ML IV (14:07)
[2018-06-08] MEDS ORDERED: PROMETHAZINE/DM (CUP) PO (15:00)
[2018-06-08] MEDS: TAMSULOSIN (SR) 0.4 MG CAP PO (21:07)
[2018-06-08] MEDS: ATORVASTATIN 80 MG TAB PO (21:08)
[2018-06-08] MEDS: INSULIN GLARGINE [LANTus] (100 UNITS/ML) SYG SC (21:12)
[2018-06-09] MEDS: morphine 2 MG INJ IV ×3 (02:57→23:52)
[2018-06-09] MEDS: CYCLOBENZAPRINE 10 MG TAB PO ×3 (05:34→17:44)
[2018-06-09 07:12] LABS: ADD MAN DIFF? NO
[2018-06-09 07:20] LABS: BASOPHIL # 0.1 10^3/ul (0.0-0.1); BASOPHILS % 0.6 % (0.0-2.0); EOSINOPHILS # 0.3 10^3/ul (0.0-0.5); EOSINOPHILS % 3.4 % (0.0-7.0); HEMATOCRIT 33.9 % (42.0-52.0); HEMOGLOBIN 10.1 g/dl (14.0-18.0); LYMPHOCYTES % 11.1 % (15.0-51.0); MEAN CORPUSCULAR HEMOGLOBIN 29.8 pg (29.0-33.0); MEAN CORPUSCULAR HGB CONC 29.8 g/dl (32.0-37.0); MEAN PLATELET VOLUME 10.5 fl (7.4-10.4); MONOCYTE # 0.7 10^3/ul (0.3-0.9); MONOCYTES % 8.2 % (0.0-11.0); NEUTROPHIL # 6.8 10^3/ul (1.6-7.5); NEUTROPHILS % 75.6 % (39.0-77.0); PLATELET COUNT 254 10^3/UL (140-415); RED BLOOD COUNT 3.39 10^6/ul (4.70-6.10); RED CELL DISTRIBUTION WIDTH 14.5 % (11.5-14.5)
[2018-06-09 07:30] LABS: ALBUMIN/GLOBULIN RATIO 1.08; ALKALINE PHOSPHATASE 89 IU/L (42-121); ANION GAP 13 (5-13); ASPARTATE AMINO TRANSFERASE 28 IU/L (15-46); BILIRUBIN,INDIRECT 0.2 mg/dl (0-1.1); BILIRUBIN,TOTAL 0.2 mg/dl (0.2-1.3); BLOOD UREA NITROGEN 55 mg/dl (7-20); CALCIUM 9.6 mg/dl (8.4-10.2); CARBON DIOXIDE 28 mmol/L (21-31); CHLORIDE 96 mmol/L (97-110); CREATININE 5.45 mg/dl (0.61-1.24); Estimated GFR 11 mL/min (>60); GLUCOSE 114 mg/dl (70-220); POTASSIUM 4.6 mmol/L (3.5-5.1); SODIUM 137 mmol/L (135-144); TOTAL PROTEIN 7.7 g/dl (6.1-8.1)
[2018-06-09 07:55] LABS: ALANINE AMINOTRANSFERASE < 6 IU/L (13-69)
[2018-06-09] MEDS: SEVELAMER CARBONATE 0.8 GM PKT PO ×3 (08:14→17:43)
[2018-06-09] MEDS: DOCUSATE SODIUM 250 MG CAP PO ×2 (08:14→21:56)
[2018-06-09] MEDS: EZETIMIBE 10 MG TAB PO (08:14)
[2018-06-09] MEDS: FENOFIBRATE 145 MG TAB PO (08:14)
[2018-06-09] MEDS: AMITRIPTYLINE 50 MG TAB PO (08:14)
[2018-06-09] MEDS: FLUOCINONIDE 0.05% CR 30GM TUBE TOP (08:15)
[2018-06-09] MEDS: DULOXETINE 30 MG CAP DR PO (08:15)
[2018-06-09] MEDS: ASPIRIN 81 MG TAB PO (08:15)
[2018-06-09] MEDS: FLUTICASONE/VILANTEROL 100-25 INH (08:15)
[2018-06-09] MEDS: FISH OIL 1,000 MG CAP PO ×2 (08:15→21:56)
[2018-06-09] MEDS: ECONAZOLE TOP (08:15)
[2018-06-09] MEDS: PREGABALIN 50 MG CAP PO ×2 (08:19→21:56)
[2018-06-09] MEDS: INSULIN ASPART [NOVOLOG] 3 ML PEN SC ×3 (08:19→17:44)
[2018-06-09] MEDS: ATORVASTATIN 80 MG TAB PO (21:56)
[2018-06-09] MEDS: TAMSULOSIN (SR) 0.4 MG CAP PO (21:56)
[2018-06-09] MEDS: ISOSORBIDE MONONITRATE(SR)30 MG TAB PO (21:57)
[2018-06-09] MEDS: INSULIN GLARGINE [LANTus] (100 UNITS/ML) SYG SC (22:02)
[2018-06-10] MEDS: CYCLOBENZAPRINE 10 MG TAB PO ×5 (01:02→21:23)
[2018-06-10] MEDS: morphine 2 MG INJ IV ×2 (06:41→21:34)
[2018-06-10 07:07] LABS: ADD MAN DIFF? NO
[2018-06-10 07:12] LABS: WHITE BLOOD COUNT 8.8 10^3/ul (4.8-10.8)
[2018-06-10 07:12] LABS: BASOPHIL # 0.1 10^3/ul (0.0-0.1); BASOPHILS % 0.9 % (0.0-2.0); EOSINOPHILS # 0.3 10^3/ul (0.0-0.5); HEMATOCRIT 33.1 % (42.0-52.0); HEMOGLOBIN 9.9 g/dl (14.0-18.0); LYMPHOCYTES # 1.2 10^3/ul (0.8-2.9); LYMPHOCYTES % 13.5 % (15.0-51.0); MEAN CORPUSCULAR HEMOGLOBIN 29.8 pg (29.0-33.0); MEAN CORPUSCULAR HGB CONC 29.9 g/dl (32.0-37.0); MEAN CORPUSCULAR VOLUME 99.7 fl (82.0-101.0); MEAN PLATELET VOLUME 10.5 fl (7.4-10.4); MONOCYTE # 0.7 10^3/ul (0.3-0.9); MONOCYTES % 8.2 % (0.0-11.0); NEUTROPHIL # 6.4 10^3/ul (1.6-7.5); NEUTROPHILS % 72.8 % (39.0-77.0); PLATELET COUNT 255 10^3/UL (140-415); RED BLOOD COUNT 3.32 10^6/ul (4.70-6.10); RED CELL DISTRIBUTION WIDTH 14.5 % (11.5-14.5)
[2018-06-10 07:49] LABS: ANION GAP 13 (5-13); BLOOD UREA NITROGEN 72 mg/dl (7-20); CALCIUM 9.5 mg/dl (8.4-10.2); CARBON DIOXIDE 28 mmol/L (21-31); CHLORIDE 96 mmol/L (97-110); CREATININE 6.14 mg/dl (0.61-1.24); Estimated GFR 9 mL/min (>60); GLUCOSE 107 mg/dl (70-220); SODIUM 137 mmol/L (135-144)
[2018-06-10] MEDS: ECONAZOLE TOP (08:49)
[2018-06-10] MEDS: ACETAMINOPHEN 500 MG TAB PO (08:49)
[2018-06-10] MEDS: FLUTICASONE/VILANTEROL 100-25 INH (08:49)
[2018-06-10] MEDS: DOCUSATE SODIUM 250 MG CAP PO ×2 (08:50→21:23)
[2018-06-10] MEDS: AMITRIPTYLINE 50 MG TAB PO (08:50)
[2018-06-10] MEDS: PREGABALIN 50 MG CAP PO ×2 (08:50→21:25)
[2018-06-10] MEDS: DULOXETINE 30 MG CAP DR PO (08:50)
[2018-06-10] MEDS: EZETIMIBE 10 MG TAB PO (08:50)
[2018-06-10] MEDS: CLOPIDOGREL 75 MG TAB PO (08:50)
[2018-06-10] MEDS: SEVELAMER CARBONATE 0.8 GM PKT PO ×3 (08:50→17:23)
[2018-06-10] MEDS: ASPIRIN 81 MG TAB PO (08:50)
[2018-06-10] MEDS: FENOFIBRATE 145 MG TAB PO (08:50)
[2018-06-10] MEDS: FLUOCINONIDE 0.05% CR 30GM TUBE TOP (08:51)
[2018-06-10] MEDS: FISH OIL 1,000 MG CAP PO ×2 (08:51→21:23)
[2018-06-10] MEDS: ISOSORBIDE MONONITRATE(SR)30 MG TAB PO (08:51)
[2018-06-10] MEDS: INSULIN ASPART [NOVOLOG] 3 ML PEN SC ×3 (08:56→17:24)
[2018-06-10] MEDS: HYDROmorphONE 1 MG/ML SYG IV (09:43)
[2018-06-10] MEDS: INSULIN GLARGINE [LANTus] (100 UNITS/ML) SYG SC (21:00)
[2018-06-10] MEDS: ATORVASTATIN 80 MG TAB PO (21:23)
[2018-06-10] MEDS: TAMSULOSIN (SR) 0.4 MG CAP PO (21:23)
[2018-06-11] MEDS: morphine 2 MG INJ IV ×3 (01:00→20:52)
[2018-06-11] MEDS: ZOLPIDEM 5 MG TAB PO (02:47)
[2018-06-11] MEDS: CYCLOBENZAPRINE 10 MG TAB PO ×3 (06:12→18:12)
[2018-06-11 06:50] LABS: ADD MAN DIFF? NO
[2018-06-11 06:54] LABS: WHITE BLOOD COUNT 10.7 10^3/ul (4.8-10.8)
[2018-06-11 06:54] LABS: BASOPHIL # 0.1 10^3/ul (0.0-0.1); BASOPHILS % 0.7 % (0.0-2.0); EOSINOPHILS # 0.2 10^3/ul (0.0-0.5); EOSINOPHILS % 2.2 % (0.0-7.0); HEMOGLOBIN 9.6 g/dl (14.0-18.0); LYMPHOCYTES # 1.4 10^3/ul (0.8-2.9); MEAN CORPUSCULAR HEMOGLOBIN 29.6 pg (29.0-33.0); MEAN CORPUSCULAR HGB CONC 29.1 g/dl (32.0-37.0); MEAN CORPUSCULAR VOLUME 101.9 fl (82.0-101.0); MEAN PLATELET VOLUME 10.2 fl (7.4-10.4); MONOCYTE # 0.9 10^3/ul (0.3-0.9); NEUTROPHILS % 74.7 % (39.0-77.0); PLATELET COUNT 264 10^3/UL (140-415); RED BLOOD COUNT 3.24 10^6/ul (4.70-6.10); RED CELL DISTRIBUTION WIDTH 14.6 % (11.5-14.5)
[2018-06-11 07:19] LABS: ANION GAP 12 (5-13); BLOOD UREA NITROGEN 54 mg/dl (7-20); CALCIUM 9.7 mg/dl (8.4-10.2); CARBON DIOXIDE 29 mmol/L (21-31); CHLORIDE 100 mmol/L (97-110); CREATININE 4.97 mg/dl (0.61-1.24); Estimated GFR 12 mL/min (>60); GLUCOSE 109 mg/dl (70-220); POTASSIUM 5.5 mmol/L (3.5-5.1); SODIUM 141 mmol/L (135-144)
[2018-06-11] MEDS: INSULIN ASPART [NOVOLOG] 3 ML PEN SC ×3 (07:55→17:55)
[2018-06-11] MEDS: SEVELAMER CARBONATE 0.8 GM PKT PO ×3 (08:58→18:12)
[2018-06-11] MEDS: EZETIMIBE 10 MG TAB PO (08:59)
[2018-06-11] MEDS: CLOPIDOGREL 75 MG TAB PO (08:59)
[2018-06-11] MEDS: PREGABALIN 50 MG CAP PO ×2 (08:59→20:49)
[2018-06-11] MEDS: ASPIRIN 81 MG TAB PO (08:59)
[2018-06-11] MEDS: DULOXETINE 30 MG CAP DR PO (08:59)
[2018-06-11] MEDS: ISOSORBIDE MONONITRATE(SR)30 MG TAB PO (08:59)
[2018-06-11] MEDS: AMITRIPTYLINE 50 MG TAB PO (09:00)
[2018-06-11] MEDS: FENOFIBRATE 145 MG TAB PO (09:00)
[2018-06-11] MEDS: FLUTICASONE/VILANTEROL 100-25 INH (09:00)
[2018-06-11] MEDS: DOCUSATE SODIUM 250 MG CAP PO ×2 (09:00→20:49)
[2018-06-11] MEDS: FISH OIL 1,000 MG CAP PO ×2 (09:00→20:49)
[2018-06-11] MEDS: ECONAZOLE TOP (09:01)
[2018-06-11] MEDS: FLUOCINONIDE 0.05% CR 30GM TUBE TOP (09:01)
[2018-06-11 13:40] LABS: POTASSIUM 5.4 mmol/L (3.5-5.1)
[2018-06-11] MEDS ORDERED: GLUCOSE GEL 15 GRAM TUBE (17:47)
[2018-06-11 20:44] LABS: GLUCOSE 214 mg/dl (70-220)
[2018-06-11] MEDS: ATORVASTATIN 80 MG TAB PO (20:49)
[2018-06-11] MEDS: TAMSULOSIN (SR) 0.4 MG CAP PO (20:49)
[2018-06-11] MEDS: INSULIN GLARGINE [LANTus] (100 UNITS/ML) SYG SC (20:57)
[2018-06-12] MEDS: CYCLOBENZAPRINE 10 MG TAB PO ×4 (00:59→17:30)
[2018-06-12] MEDS: morphine 2 MG INJ IV ×3 (01:14→08:59)
[2018-06-12 06:41] LABS: ADD MAN DIFF? NO
[2018-06-12 06:46] LABS: WHITE BLOOD COUNT 10.1 10^3/ul (4.8-10.8)
[2018-06-12 06:46] LABS: BASOPHIL # 0.1 10^3/ul (0.0-0.1); BASOPHILS % 0.7 % (0.0-2.0); EOSINOPHILS # 0.2 10^3/ul (0.0-0.5); EOSINOPHILS % 1.7 % (0.0-7.0); HEMATOCRIT 33.1 % (42.0-52.0); HEMOGLOBIN 9.8 g/dl (14.0-18.0); LYMPHOCYTES # 1.3 10^3/ul (0.8-2.9); LYMPHOCYTES % 12.5 % (15.0-51.0); MEAN CORPUSCULAR HEMOGLOBIN 30.1 pg (29.0-33.0); MEAN CORPUSCULAR HGB CONC 29.6 g/dl (32.0-37.0); MEAN CORPUSCULAR VOLUME 101.5 fl (82.0-101.0); MEAN PLATELET VOLUME 10.4 fl (7.4-10.4); MONOCYTE # 0.8 10^3/ul (0.3-0.9); MONOCYTES % 7.4 % (0.0-11.0); NEUTROPHIL # 7.7 10^3/ul (1.6-7.5); NEUTROPHILS % 75.8 % (39.0-77.0); PLATELET COUNT 261 10^3/UL (140-415); RED BLOOD COUNT 3.26 10^6/ul (4.70-6.10); RED CELL DISTRIBUTION WIDTH 14.7 % (11.5-14.5)
[2018-06-12 07:11] LABS: ANION GAP 15 (5-13); BLOOD UREA NITROGEN 70 mg/dl (7-20); CALCIUM 9.8 mg/dl (8.4-10.2); CARBON DIOXIDE 25 mmol/L (21-31); CHLORIDE 99 mmol/L (97-110); CREATININE 6.22 mg/dl (0.61-1.24); Estimated GFR 9 mL/min (>60); GLUCOSE 105 mg/dl (70-220); PHOSPHORUS 8.5 mg/dl (2.5-4.9); SODIUM 139 mmol/L (135-144)
[2018-06-12 07:38] LABS: POTASSIUM 6.2 mmol/L (3.5-5.1)
[2018-06-12] MEDS: INSULIN ASPART [NOVOLOG] 3 ML PEN SC ×3 (07:55→17:09)
[2018-06-12] MEDS: DULOXETINE 30 MG CAP DR PO (08:35)
[2018-06-12] MEDS: DOCUSATE SODIUM 250 MG CAP PO ×2 (08:44→21:00)
[2018-06-12] MEDS: SEVELAMER CARBONATE 0.8 GM PKT PO ×3 (08:44→17:30)
[2018-06-12] MEDS: ASPIRIN 81 MG TAB PO (08:44)
[2018-06-12] MEDS: FENOFIBRATE 145 MG TAB PO (08:44)
[2018-06-12] MEDS: EZETIMIBE 10 MG TAB PO (08:44)
[2018-06-12] MEDS: FISH OIL 1,000 MG CAP PO ×2 (08:44→21:00)
[2018-06-12] MEDS: CLOPIDOGREL 75 MG TAB PO (08:45)
[2018-06-12] MEDS: ECONAZOLE TOP (08:47)
[2018-06-12] MEDS: FLUTICASONE/VILANTEROL 100-25 INH (08:47)
[2018-06-12] MEDS: ISOSORBIDE MONONITRATE(SR)30 MG TAB PO (08:48)
[2018-06-12] MEDS: AMITRIPTYLINE 50 MG TAB PO (08:52)
[2018-06-12] MEDS: PREGABALIN 50 MG CAP PO ×2 (08:53→21:00)
[2018-06-12] MEDS: FLUOCINONIDE 0.05% CR 30GM TUBE TOP (09:00)
[2018-06-12] MEDS ORDERED: AMIODARONE 150MG/D5W BOLUS 100 ML (19:03)
[2018-06-12] MEDS ORDERED: IOHEXOL 350MG/ML 50 ML BTL (19:38)
[2018-06-12] MEDS ORDERED: LIDOCAINE 1% (MDV) 20 ML INJ (19:38)
[2018-06-12] MEDS ORDERED: HEPARIN 1000 UNITS/ML 10 ML INJ (19:38)
[2018-06-12] MEDS ORDERED: HEPARIN 1000 UNITS/NS (A-LINE) 2,000 ML (19:38)
[2018-06-12] MEDS ORDERED: IODIXANOL LOCM 100 ML BTL (19:38)
[2018-06-12] MEDS ORDERED: MIDAZOLAM 1 MG/ML 2 ML INJ (19:38)
[2018-06-12] MEDS ORDERED: FENTAnyl 50 MCG/ML VIAL (19:38)
[2018-06-12] MEDS ORDERED: VERAPAMIL 5 MG INJ (19:39)
[2018-06-12] MEDS ORDERED: NITROGLYCERIN (IC) 100 MCG/ML INJ (19:39)
[2018-06-12] MEDS ORDERED: SOD CHLORIDE 0.9% 1,000 ML (19:39)
[2018-06-12 19:55] LABS: ADD MAN DIFF? NO
[2018-06-12 19:56] LABS: ABNORMAL IP MESSAGE 1; BASOPHIL # 0.1 10^3/ul (0.0-0.1); BASOPHILS % 0.8 % (0.0-2.0); EOSINOPHILS # 0.1 10^3/ul (0.0-0.5); HEMATOCRIT 34.2 % (42.0-52.0); HEMOGLOBIN 9.8 g/dl (14.0-18.0); LYMPHOCYTES # 2.9 10^3/ul (0.8-2.9); LYMPHOCYTES % 21.9 % (15.0-51.0); MEAN CORPUSCULAR HEMOGLOBIN 29.9 pg (29.0-33.0); MEAN CORPUSCULAR HGB CONC 28.7 g/dl (32.0-37.0); MEAN CORPUSCULAR VOLUME 104.3 fl (82.0-101.0); MEAN PLATELET VOLUME 10.9 fl (7.4-10.4); MONOCYTE # 0.7 10^3/ul (0.3-0.9); MONOCYTES % 5.2 % (0.0-11.0); NEUTROPHIL # 8.6 10^3/ul (1.6-7.5); PLATELET COUNT 266 10^3/UL (140-415); POSITIVE DIFF @See below; RED BLOOD COUNT 3.28 10^6/ul (4.70-6.10); RED CELL DISTRIBUTION WIDTH 14.7 % (11.5-14.5)
[2018-06-12 19:56] LABS: WHITE BLOOD COUNT 13.2 10^3/ul (4.8-10.8)
[2018-06-12] MEDS ORDERED: TICAGRELOR 90 MG TABLET (20:05)
[2018-06-12 20:15] LABS: CREATINE KINASE 85 IU/L (23-200)
[2018-06-12 20:17] LABS: ALANINE AMINOTRANSFERASE 66 IU/L (13-69); ALBUMIN/GLOBULIN RATIO 1.37; ALKALINE PHOSPHATASE 113 IU/L (42-121); ANION GAP 20 (5-13); ASPARTATE AMINO TRANSFERASE 294 IU/L (15-46); BILIRUBIN,INDIRECT 0.2 mg/dl (0-1.1); BILIRUBIN,TOTAL 0.2 mg/dl (0.2-1.3); BLOOD UREA NITROGEN 38 mg/dl (7-20); CALCIUM 10.7 mg/dl (8.4-10.2); CARBON DIOXIDE 27 mmol/L (21-31); CHLORIDE 92 mmol/L (97-110); Estimated GFR 15 mL/min (>60); GLUCOSE 168 mg/dl (70-220); MAGNESIUM 3.5 mg/dl (1.7-2.5); POTASSIUM 4.9 mmol/L (3.5-5.1); SODIUM 139 mmol/L (135-144); TOTAL PROTEIN 6.9 g/dl (6.1-8.1)
[2018-06-12 20:28] LABS: CK INDEX 7.4; TROPONIN-I 0.111 ng/ml (0.000-0.120)
[2018-06-12] MEDS ORDERED: BIVALIRUDIN 250MG /NS 50 ML 50 ML IVPB ×2 (20:31→21:09)
[2018-06-12 20:32] LABS: CK-MB 6.25 ng/ml (0.0-2.4)
[2018-06-12 20:46] LABS: LACTIC ACID 7.8 mmol/L (0.5-2.0)
[2018-06-12] MEDS: ATORVASTATIN 80 MG TAB PO (21:00)
[2018-06-12] MEDS: INSULIN GLARGINE [LANTus] (100 UNITS/ML) SYG SC (21:00)
[2018-06-12] MEDS: TAMSULOSIN (SR) 0.4 MG CAP PO (21:00)
[2018-06-12 21:04] LABS: AADO2 Arterial 292.4 mmHg (7.0-24.0); Arterial Base Excess 2.7 mmol/L (-3.0-3); Arterial Blood Gas Oxygen Sat 95.9 mmHG (95.0-98.0); Arterial COHb 0.1 % (0.0-3.0); Arterial Fraction of Oxyhgb 95.5 % (93.0-99.0); Arterial HCO3 27.6 mmol/L (22.0-26.0); Arterial MetHb 0.3 % (0.0-1.5); Arterial pCO2 44.3 mmhg (35-45); MODE VENT - AC; Site A-Line
[2018-06-12] MEDS ORDERED: VECURONIUM 100 MG in DEXTROSE 5% 100 ML IV (23:00)
[2018-06-12] MEDS: PROPOFOL 100 ML IV (23:15)
[2018-06-13] MEDS ORDERED: DEXTROSE 50% 50 ML SYRINGE IV
[2018-06-13] MEDS: ACCU-CHEK XX ×24 (00:03→23:00)
[2018-06-13] MEDS: FENTAnyl (DRIP) 1000 mcg/100mL 100 ML IV ×2 (00:04→18:49)
[2018-06-13] MEDS: CYCLOBENZAPRINE 10 MG TAB PO ×4 (00:30→18:30)
[2018-06-13] MEDS: INSULIN HUMAN REGULAR 100 UNIT in SOD CHLORIDE 0.9% 99 ML IV (00:49)
[2018-06-13 00:54] LABS: ADD MAN DIFF? NO
[2018-06-13 00:56] LABS: WHITE BLOOD COUNT 16.3 10^3/ul (4.8-10.8)
[2018-06-13 00:56] LABS: ABNORMAL IP MESSAGE 1; BASOPHIL # 0.1 10^3/ul (0.0-0.1); BASOPHILS % 0.4 % (0.0-2.0); EOSINOPHILS % 0.2 % (0.0-7.0); HEMATOCRIT 31.5 % (42.0-52.0); HEMOGLOBIN 9.5 g/dl (14.0-18.0); LYMPHOCYTES # 0.5 10^3/ul (0.8-2.9); LYMPHOCYTES % 2.9 % (15.0-51.0); MEAN CORPUSCULAR HEMOGLOBIN 29.9 pg (29.0-33.0); MEAN CORPUSCULAR HGB CONC 30.2 g/dl (32.0-37.0); MEAN CORPUSCULAR VOLUME 99.1 fl (82.0-101.0); MEAN PLATELET VOLUME 10.8 fl (7.4-10.4); MONOCYTE # 0.8 10^3/ul (0.3-0.9); MONOCYTES % 4.8 % (0.0-11.0); NEUTROPHIL # 14.3 10^3/ul (1.6-7.5); NEUTROPHILS % 87.3 % (39.0-77.0); PLATELET COUNT 259 10^3/UL (140-415); POSITIVE DIFF @See below; RED BLOOD COUNT 3.18 10^6/ul (4.70-6.10); RED CELL DISTRIBUTION WIDTH 14.6 % (11.5-14.5)
[2018-06-13 01:13] LABS: AMYLASE 40 U/L (11-123)
[2018-06-13 01:13] LABS: LIPASE 55 U/L (23-300)
[2018-06-13 01:15] LABS: LACTIC ACID 1.4 mmol/L (0.5-2.0)
[2018-06-13 01:16] LABS: ANION GAP 20 (5-13); BLOOD UREA NITROGEN 49 mg/dl (7-20); CALCIUM 9.6 mg/dl (8.4-10.2); CARBON DIOXIDE 22 mmol/L (21-31); CHLORIDE 93 mmol/L (97-110); CREATININE 4.43 mg/dl (0.61-1.24); Estimated GFR 14 mL/min (>60); GLUCOSE 240 mg/dl (70-220); INR 3.05; MAGNESIUM 2.8 mg/dl (1.7-2.5); POTASSIUM 5.6 mmol/L (3.5-5.1); PROTIME 31.6 Sec (11.9-14.9); PT RATIO 2.5; SODIUM 135 mmol/L (135-144)
[2018-06-13] MEDS: AMIODARONE 900 MG in DEXTROSE 5% 482 ML IV (01:18)
[2018-06-13 01:27] LABS: PARTIAL THROMBOPLASTIN TIME > 180.0 Sec (23.0-35.0)
[2018-06-13 02:27] LABS: AADO2 Arterial 206.3 mmHg (7.0-24.0); Arterial Base Excess -2.6 mmol/L (-3.0-3); Arterial Blood Gas Oxygen Sat 97.6 mmHG (95.0-98.0); Arterial COHb 0.1 % (0.0-3.0); Arterial Fraction of Oxyhgb 97.5 % (93.0-99.0); Arterial HCO3 23.4 mmol/L (22.0-26.0); Arterial MetHb 0 % (0.0-1.5); Arterial pCO2 41.2 mmhg (35-45); MODE VENT - AC; Site A-Line; Temperature 34.6 C
[2018-06-13] MEDS ORDERED: ACETAMINOPHEN 650 MG SUPP PR (03:00)
[2018-06-13] MEDS ORDERED: ACETAMINOPHEN 650MG/20.3ML CUP NGT (03:00)
[2018-06-13] MEDS ORDERED: MEPERIDINE 25 MG INJ IV ×2 (03:00)
[2018-06-13 05:08] LABS: ADD MAN DIFF? NO
[2018-06-13 05:14] LABS: BASOPHILS % 0.2 % (0.0-2.0); EOSINOPHILS % 0.2 % (0.0-7.0); HEMATOCRIT 32.1 % (42.0-52.0); HEMOGLOBIN 9.7 g/dl (14.0-18.0); LYMPHOCYTES # 0.9 10^3/ul (0.8-2.9); LYMPHOCYTES % 6.6 % (15.0-51.0); MEAN CORPUSCULAR HGB CONC 30.2 g/dl (32.0-37.0); MEAN CORPUSCULAR VOLUME 99.4 fl (82.0-101.0); MEAN PLATELET VOLUME 10.8 fl (7.4-10.4); MONOCYTE # 0.6 10^3/ul (0.3-0.9); MONOCYTES % 3.8 % (0.0-11.0); NEUTROPHIL # 12.2 10^3/ul (1.6-7.5); NEUTROPHILS % 84.7 % (39.0-77.0); PLATELET COUNT 234 10^3/UL (140-415); RED BLOOD COUNT 3.23 10^6/ul (4.70-6.10); RED CELL DISTRIBUTION WIDTH 14.7 % (11.5-14.5)
[2018-06-13 05:14] LABS: WHITE BLOOD COUNT 14.4 10^3/ul (4.8-10.8)
[2018-06-13 05:31] LABS: INR 2.37
[2018-06-13] MEDS: PROPOFOL 100 ML IV ×3 (05:32→18:55)
[2018-06-13] MEDS: OCULAR LUBRICANT 3.5 GM OPH OINT BOTH EYES ×3 (05:35→18:34)
[2018-06-13] MEDS: ARTIFICIAL TEARS 15 ML OPH BOTH EYES ×6 (05:35→21:37)
[2018-06-13 05:42] LABS: AMYLASE 42 U/L (11-123)
[2018-06-13 05:42] LABS: LIPASE 80 U/L (23-300)
[2018-06-13 05:46] LABS: ANION GAP 15 (5-13); BLOOD UREA NITROGEN 51 mg/dl (7-20); CALCIUM 9.7 mg/dl (8.4-10.2); CARBON DIOXIDE 30 mmol/L (21-31); CHLORIDE 93 mmol/L (97-110); CREATININE 4.92 mg/dl (0.61-1.24); Estimated GFR 12 mL/min (>60); GLUCOSE 154 mg/dl (70-220); MAGNESIUM 2.9 mg/dl (1.7-2.5); PHOSPHORUS 8.7 mg/dl (2.5-4.9); POTASSIUM 5.2 mmol/L (3.5-5.1); SODIUM 138 mmol/L (135-144)
[2018-06-13 05:57] LABS: PARTIAL THROMBOPLASTIN TIME 157.4 Sec (23.0-35.0)
[2018-06-13 06:09] LABS: LACTIC ACID 2.4 mmol/L (0.5-2.0)
[2018-06-13] MEDS ORDERED: NORepinephrine 8MG/250 ML (PMX 250 ML (06:09)
[2018-06-13] MEDS: NORepinephrine 8MG/250 ML (PMX 250 ML IV (06:19)
[2018-06-13] MEDS: SEVELAMER CARBONATE 0.8 GM PKT PO (07:35)
[2018-06-13 08:16] LABS: AADO2 Arterial 224.3 mmHg (7.0-24.0); Arterial Base Excess 4.5 mmol/L (-3.0-3); Arterial COHb 0.3 % (0.0-3.0); Arterial Fraction of Oxyhgb 97.4 % (93.0-99.0); Arterial HCO3 28.2 mmol/L (22.0-26.0); Arterial MetHb 0.3 % (0.0-1.5); Arterial pCO2 30.6 mmhg (35-45); MODE VENT - AC; Site A-Line; Temperature 31.9 C
[2018-06-13] MEDS: DULOXETINE 30 MG CAP DR PO (09:00)
[2018-06-13] MEDS ORDERED: TICAGRELOR 90 MG TABLET PO (09:00)
[2018-06-13] MEDS: DOCUSATE SODIUM 250 MG CAP PO ×2 (09:00→21:00)
[2018-06-13] MEDS: FISH OIL 1,000 MG CAP PO (09:00)
[2018-06-13] MEDS: AMITRIPTYLINE 50 MG TAB PO (09:00)
[2018-06-13] MEDS: PREGABALIN 50 MG CAP PO (09:00)
[2018-06-13] MEDS: FLUTICASONE/VILANTEROL 100-25 INH (09:00)
[2018-06-13] MEDS: FENOFIBRATE 145 MG TAB PO (09:00)
[2018-06-13] MEDS: EZETIMIBE 10 MG TAB PO (09:00)
[2018-06-13] MEDS: ASPIRIN 81 MG TAB NGT (09:35)
[2018-06-13] MEDS: FAMOTIDINE 20 MG INJ IV (09:35)
[2018-06-13] MEDS: TICAGRELOR 90 MG TABLET NGT ×2 (09:36→21:37)
[2018-06-13] MEDS: DEXTROSE 50% 50 ML SYRINGE IV (10:26)
[2018-06-13 12:22] LABS: ADD MAN DIFF? NO
[2018-06-13 12:28] LABS: ABNORMAL IP MESSAGE 1; BASOPHIL # 0.1 10^3/ul (0.0-0.1); BASOPHILS % 0.7 % (0.0-2.0); EOSINOPHILS % 0.3 % (0.0-7.0); HEMATOCRIT 31.5 % (42.0-52.0); HEMOGLOBIN 9.9 g/dl (14.0-18.0); LYMPHOCYTES # 1.8 10^3/ul (0.8-2.9); LYMPHOCYTES % 12.9 % (15.0-51.0); MEAN CORPUSCULAR HEMOGLOBIN 30.2 pg (29.0-33.0); MEAN CORPUSCULAR HGB CONC 31.4 g/dl (32.0-37.0); MEAN PLATELET VOLUME 10.7 fl (7.4-10.4); MONOCYTES % 7.1 % (0.0-11.0); NEUTROPHILS % 72.4 % (39.0-77.0); PLATELET COUNT 271 10^3/UL (140-415); POSITIVE DIFF @See below; RED BLOOD COUNT 3.28 10^6/ul (4.70-6.10); RED CELL DISTRIBUTION WIDTH 14.6 % (11.5-14.5)
[2018-06-13 12:28] LABS: WHITE BLOOD COUNT 13.9 10^3/ul (4.8-10.8)
[2018-06-13 12:49] LABS: ANION GAP 15 (5-13); BLOOD UREA NITROGEN 56 mg/dl (7-20); CALCIUM 9.7 mg/dl (8.4-10.2); CARBON DIOXIDE 26 mmol/L (21-31); CHLORIDE 94 mmol/L (97-110); CREATININE 5.14 mg/dl (0.61-1.24); Estimated GFR 11 mL/min (>60); GLUCOSE 163 mg/dl (70-220); MAGNESIUM 2.9 mg/dl (1.7-2.5); PHOSPHORUS 8.6 mg/dl (2.5-4.9); POTASSIUM 5.6 mmol/L (3.5-5.1); SODIUM 135 mmol/L (135-144)
[2018-06-13 12:53] LABS: LACTIC ACID 2.2 mmol/L (0.5-2.0)
[2018-06-13] MEDS: ECONAZOLE TOP (13:10)
[2018-06-13] MEDS: FLUOCINONIDE 0.05% CR 30GM TUBE TOP (13:12)
[2018-06-13 14:40] LABS: ANISOCYTOSIS 1+ (0-0); BAND NEUTROPHILS #M 0.5 10^3/ul (0.0-0.6); BAND NEUTROPHILS % (M) 4 % (0-4); BASOPHIL #M 0.1 10^3/ul (0.0-0.0); BASOPHILS % (M) 1 % (0-2); GIANT THROMBO% (M) 2 % (0-0); LYMPHOCYTES #M 1.8 10^3/ul (0.8-2.9); LYMPHOCYTES % (M) 13 % (15-51); MONOCYTE #M 0.8 10^3/ul (0.3-0.9); MONOCYTES % (M) 6 % (0-11); MYELOCYTES #M 0.2 10^3/ul (0.0-0.0); MYELOCYTES % (M) 2 % (0-0); PLATELET ESTIMATE NORMAL; POIKILOCYTOSIS 1+ (0-0); POLYCHROMASIA 3+ (0-0); REACTIVE LYMPHOCYTES #M 0.4 10^3/ul (0.0-0.0); REACTIVE LYMPHOCYTES% (M) 3 % (0-0); SEG NEUT #M 9.9 10^3/ul (1.6-7.5); SEGMENTED NEUTROPHILS (M) % 71 % (39-77); SMUDGE%M 16 % (0-0)
[2018-06-13 14:42] LABS: AADO2 Arterial 175.7 mmHg (7.0-24.0); Arterial Base Excess -0.9 mmol/L (-3.0-3); Arterial Blood Gas Oxygen Sat 98.6 mmHG (95.0-98.0); Arterial COHb 0.3 % (0.0-3.0); Arterial Fraction of Oxyhgb 98.2 % (93.0-99.0); Arterial HCO3 24.3 mmol/L (22.0-26.0); Arterial MetHb 0.1 % (0.0-1.5); Arterial pCO2 35.7 mmhg (35-45); MODE VENT - AC; Site A-Line; Temperature 33.1 C
[2018-06-13 18:19] LABS: ABNORMAL IP MESSAGE 1; HEMATOCRIT 31.9 % (42.0-52.0); MEAN CORPUSCULAR HEMOGLOBIN 30.1 pg (29.0-33.0); MEAN CORPUSCULAR HGB CONC 31.3 g/dl (32.0-37.0); MEAN CORPUSCULAR VOLUME 96.1 fl (82.0-101.0); MEAN PLATELET VOLUME 10.5 fl (7.4-10.4); NUCLEATED RED BLOOD CELLS% 0.1 /100WBC (0.0-0.0); PLATELET COUNT 261 10^3/UL (140-415); POSITIVE DIFF @See below; RED BLOOD COUNT 3.32 10^6/ul (4.70-6.10); RED CELL DISTRIBUTION WIDTH 14.7 % (11.5-14.5)
[2018-06-13 18:24] LABS: ADD MAN DIFF? YES
[2018-06-13 18:36] LABS: ANION GAP 17 (5-13); BLOOD UREA NITROGEN 60 mg/dl (7-20); CALCIUM 9.8 mg/dl (8.4-10.2); CARBON DIOXIDE 24 mmol/L (21-31); CHLORIDE 94 mmol/L (97-110); Estimated GFR 11 mL/min (>60); GLUCOSE 165 mg/dl (70-220); MAGNESIUM 2.9 mg/dl (1.7-2.5); POTASSIUM 5.7 mmol/L (3.5-5.1); SODIUM 135 mmol/L (135-144)
[2018-06-13 20:11] LABS: INR 1.67; PROTIME 19.8 Sec (11.9-14.9); PT RATIO 1.5
[2018-06-13 20:12] LABS: AMYLASE 48 U/L (11-123)
[2018-06-13 20:12] LABS: LIPASE 498 U/L (23-300)
[2018-06-13 20:13] LABS: AADO2 Arterial 158.6 mmHg (7.0-24.0); Arterial Base Excess -2.9 mmol/L (-3.0-3); Arterial Blood Gas Oxygen Sat 97.5 mmHG (95.0-98.0); Arterial COHb 0.3 % (0.0-3.0); Arterial Fraction of Oxyhgb 97.2 % (93.0-99.0); Arterial HCO3 21.8 mmol/L (22.0-26.0); Arterial MetHb 0 % (0.0-1.5); Arterial pCO2 31.2 mmhg (35-45); MODE VENT - AC; Site A-Line; Temperature 32.6 C
[2018-06-13 20:17] LABS: PARTIAL THROMBOPLASTIN TIME 94.1 Sec (23.0-35.0)
[2018-06-13] MEDS: ATORVASTATIN 80 MG TAB PO (21:00)
[2018-06-13 22:05] LABS: ANISOCYTOSIS 1+ (0-0); BAND NEUTROPHILS #M 0.7 10^3/ul (0.0-0.6); BAND NEUTROPHILS % (M) 5 % (0-4); EOSINOPHILS % (M) 2 % (0-7); ERYTHROBLAST% (NRBC) (M) 1 % (0-0); GIANT THROMBO% (M) 4 % (0-0); LYMPHOCYTES #M 1.8 10^3/ul (0.8-2.9); LYMPHOCYTES % (M) 12 % (15-51); METAMYELOCYTES #M 0.4 10^3/ul (0.0-0.0); METAMYELOCYTES %M 3 % (0-0); MONOCYTE #M 0.6 10^3/ul (0.3-0.9); MONOCYTES % (M) 4 % (0-11); MYELOCYTES #M 0.6 10^3/ul (0.0-0.0); MYELOCYTES % (M) 4 % (0-0); PLATELET ESTIMATE DECREASED; POIKILOCYTOSIS 2+ (0-0); POLYCHROMASIA 1+ (0-0); REACTIVE LYMPHOCYTES #M 0.1 10^3/ul (0.0-0.0); REACTIVE LYMPHOCYTES% (M) 1 % (0-0); SEG NEUT #M 10.5 10^3/ul (1.6-7.5); SEGMENTED NEUTROPHILS (M) % 69 % (39-77)
[2018-06-14] MEDS: AMIODARONE 900 MG in DEXTROSE 5% 482 ML IV (00:12)
[2018-06-14 00:16] LABS: ADD MAN DIFF? NO
[2018-06-14 00:17] LABS: WHITE BLOOD COUNT 14.2 10^3/ul (4.8-10.8)
[2018-06-14 00:18] LABS: ABNORMAL IP MESSAGE 1; BASOPHIL # 0.1 10^3/ul (0.0-0.1); BASOPHILS % 0.7 % (0.0-2.0); EOSINOPHILS # 0.1 10^3/ul (0.0-0.5); EOSINOPHILS % 0.4 % (0.0-7.0); HEMATOCRIT 32.8 % (42.0-52.0); HEMOGLOBIN 10.3 g/dl (14.0-18.0); LYMPHOCYTES # 1.5 10^3/ul (0.8-2.9); LYMPHOCYTES % 10.5 % (15.0-51.0); MEAN CORPUSCULAR HEMOGLOBIN 29.8 pg (29.0-33.0); MEAN CORPUSCULAR HGB CONC 31.4 g/dl (32.0-37.0); MEAN CORPUSCULAR VOLUME 94.8 fl (82.0-101.0); MEAN PLATELET VOLUME 10.8 fl (7.4-10.4); MONOCYTE # 0.8 10^3/ul (0.3-0.9); MONOCYTES % 5.3 % (0.0-11.0); NEUTROPHIL # 10.8 10^3/ul (1.6-7.5); PLATELET COUNT 269 10^3/UL (140-415); POSITIVE DIFF @See below; RED BLOOD COUNT 3.46 10^6/ul (4.70-6.10); RED CELL DISTRIBUTION WIDTH 14.7 % (11.5-14.5)
[2018-06-14] MEDS: ACCU-CHEK XX ×12 (00:18→11:11)
[2018-06-14] MEDS: CYCLOBENZAPRINE 10 MG TAB PO ×3 (00:30→12:21)
[2018-06-14] MEDS: OCULAR LUBRICANT 3.5 GM OPH OINT BOTH EYES ×3 (00:36→12:23)
[2018-06-14 00:37] LABS: ANION GAP 18 (5-13); BLOOD UREA NITROGEN 62 mg/dl (7-20); CALCIUM 9.5 mg/dl (8.4-10.2); CARBON DIOXIDE 22 mmol/L (21-31); CHLORIDE 94 mmol/L (97-110); CREATININE 5.64 mg/dl (0.61-1.24); Estimated GFR 10 mL/min (>60); GLUCOSE 122 mg/dl (70-220); PHOSPHORUS 9.9 mg/dl (2.5-4.9); POTASSIUM 5.8 mmol/L (3.5-5.1); SODIUM 134 mmol/L (135-144)
[2018-06-14 00:41] LABS: LACTIC ACID 3.9 mmol/L (0.5-2.0)
[2018-06-14] MEDS: PROPOFOL 100 ML IV (01:38)
[2018-06-14 01:59] LABS: AADO2 Arterial 122.3 mmHg (7.0-24.0); Arterial Base Excess -1.4 mmol/L (-3.0-3); Arterial Blood Gas Oxygen Sat 97.5 mmHG (95.0-98.0); Arterial COHb 0.3 % (0.0-3.0); Arterial Fraction of Oxyhgb 96.9 % (93.0-99.0); Arterial HCO3 23.1 mmol/L (22.0-26.0); Arterial MetHb 0.3 % (0.0-1.5); Arterial pCO2 31.3 mmhg (35-45); MODE VENT - AC; Site A-Line; Temperature 32.6 C
[2018-06-14] MEDS: ALBUMIN HUMAN 25% 50 ML IV ×2 (02:27→12:00)
[2018-06-14] MEDS: ACETAMINOPHEN 650MG/20.3ML CUP NGT ×3 (03:00→15:00)
[2018-06-14] MEDS: ACETAMINOPHEN 650 MG SUPP PR ×3 (03:00→15:00)
[2018-06-14] MEDS: NORepinephrine 8MG/250 ML (PMX 250 ML IV ×3 (04:11→13:38)
[2018-06-14 06:23] LABS: ADD MAN DIFF? NO
[2018-06-14 06:27] LABS: INR 1.87; PROTIME 21.6 Sec (11.9-14.9); PT RATIO 1.7
[2018-06-14 06:29] LABS: PARTIAL THROMBOPLASTIN TIME 58.8 Sec (23.0-35.0)
[2018-06-14 06:30] LABS: ABNORMAL IP MESSAGE 1; BASOPHIL # 0.1 10^3/ul (0.0-0.1); EOSINOPHILS # 0.1 10^3/ul (0.0-0.5); EOSINOPHILS % 0.6 % (0.0-7.0); HEMATOCRIT 32.3 % (42.0-52.0); HEMOGLOBIN 10.2 g/dl (14.0-18.0); LYMPHOCYTES # 1.4 10^3/ul (0.8-2.9); LYMPHOCYTES % 11.7 % (15.0-51.0); MEAN CORPUSCULAR HEMOGLOBIN 30.4 pg (29.0-33.0); MEAN CORPUSCULAR HGB CONC 31.6 g/dl (32.0-37.0); MEAN CORPUSCULAR VOLUME 96.1 fl (82.0-101.0); MEAN PLATELET VOLUME 11.3 fl (7.4-10.4); MONOCYTE # 0.6 10^3/ul (0.3-0.9); MONOCYTES % 5.4 % (0.0-11.0); NEUTROPHIL # 8.5 10^3/ul (1.6-7.5); NUCLEATED RED BLOOD CELLS # 0.1 10^3/ul (0.0-0.0); NUCLEATED RED BLOOD CELLS% 0.5 /100WBC (0.0-0.0); PLATELET COUNT 262 10^3/UL (140-415); POSITIVE DIFF @See below; RED BLOOD COUNT 3.36 10^6/ul (4.70-6.10); RED CELL DISTRIBUTION WIDTH 14.7 % (11.5-14.5)
[2018-06-14 06:30] LABS: WHITE BLOOD COUNT 11.8 10^3/ul (4.8-10.8)
[2018-06-14 06:38] LABS: AMYLASE 205 U/L (11-123); ANION GAP 21 (5-13); BLOOD UREA NITROGEN 49 mg/dl (7-20); CALCIUM 9.1 mg/dl (8.4-10.2); CARBON DIOXIDE 18 mmol/L (21-31); CHLORIDE 96 mmol/L (97-110); CREATININE 4.73 mg/dl (0.61-1.24); Estimated GFR 13 mL/min (>60); GLUCOSE 78 mg/dl (70-220); MAGNESIUM 2.7 mg/dl (1.7-2.5); PHOSPHORUS 9.1 mg/dl (2.5-4.9); SODIUM 135 mmol/L (135-144)
[2018-06-14] MEDS ORDERED: NA BICARBONATE 8.4% 50 ML SYG ×2 (07:00→08:30)
[2018-06-14] MEDS ORDERED: CA GLUCONATE (GM) 10% 10ML INJ (07:00)
[2018-06-14] MEDS ORDERED: EPINEPHrine 0.1 MG/ML SYG (07:00)
[2018-06-14 07:15] LABS: POTASSIUM 6.5 mmol/L (3.5-5.1)
[2018-06-14 07:16] LABS: LACTIC ACID 7.6 mmol/L (0.5-2.0)
[2018-06-14 08:14] LABS: AADO2 Arterial 118.9 mmHg (7.0-24.0); Arterial Base Excess -11.4 mmol/L (-3.0-3); Arterial Blood Gas Oxygen Sat 92.5 mmHG (95.0-98.0); Arterial COHb 0.5 % (0.0-3.0); Arterial Fraction of Oxyhgb 91.9 % (93.0-99.0); Arterial HCO3 15.4 mmol/L (22.0-26.0); Arterial MetHb 0.1 % (0.0-1.5); Arterial pCO2 37.8 mmhg (35-45); MODE VENT - AC; Site A-Line
[2018-06-14] MEDS ORDERED: PHENYLephrine 20MG IN 250 ML 250 ML (08:16)
[2018-06-14] MEDS ORDERED: ATROPINE 1 MG/10 ML SYRINGE (08:23)
[2018-06-14] MEDS ORDERED: DOPamine-D5W 1.6 MG/ML 250 ML (08:42)
[2018-06-14] MEDS ORDERED: CA CHLORIDE 10% 10 ML SYRINGE (08:54)
[2018-06-14] MEDS: DOCUSATE SODIUM 250 MG CAP PO (09:00)
[2018-06-14] MEDS: AMITRIPTYLINE 50 MG TAB PO (09:00)
[2018-06-14] MEDS: DULOXETINE 30 MG CAP DR PO (09:00)
[2018-06-14] MEDS: CA CHLORIDE 10% 10 ML SYRINGE IV (09:05)
[2018-06-14] MEDS: ARTIFICIAL TEARS 15 ML OPH BOTH EYES ×2 (09:09→12:23)
[2018-06-14] MEDS: DOPamine-D5W 1.6 MG/ML 250 ML IV ×2 (09:15→12:59)
[2018-06-14] MEDS: PHENYLephrine 20MG IN 250 ML 250 ML IV ×5 (09:16→15:56)
[2018-06-14] MEDS: NA BICARBONATE 8.4% 50 ML SYG IV (09:17)
[2018-06-14] MEDS: TICAGRELOR 90 MG TABLET NGT (09:24)
[2018-06-14] MEDS: ASPIRIN 81 MG TAB NGT (09:24)
[2018-06-14] MEDS: FAMOTIDINE 20 MG INJ IV (09:25)
[2018-06-14] MEDS: SODIUM BICARBONATE (IV ADD) 100 MEQ in DEXTROSE 5% 1,000 ML IV (09:27)
[2018-06-14] MEDS: FLUOCINONIDE 0.05% CR 30GM TUBE TOP (09:28)
[2018-06-14] MEDS: ECONAZOLE TOP (09:28)
[2018-06-14 09:40] LABS: LIPASE 4742 U/L (23-300)
[2018-06-14 10:00] LABS: ANISOCYTOSIS 1+ (0-0); BAND NEUTROPHILS #M 2.4 10^3/ul (0.0-0.6); BAND NEUTROPHILS % (M) 21 % (0-4); BASOPHIL #M 0.1 10^3/ul (0.0-0.0); BASOPHILS % (M) 1 % (0-2); EOSINOPHILS % (M) 1 % (0-7); GIANT THROMBO% (M) 1 % (0-0); LYMPHOCYTES #M 1.4 10^3/ul (0.8-2.9); LYMPHOCYTES % (M) 12 % (15-51); MONOCYTE #M 0.3 10^3/ul (0.3-0.9); MONOCYTES % (M) 3 % (0-11); MYELOCYTES #M 0.2 10^3/ul (0.0-0.0); MYELOCYTES % (M) 2 % (0-0); PLATELET ESTIMATE NORMAL; POLYCHROMASIA 2+ (0-0); PROMYELOCYTES #M 0.2 10^3/ul (0-0); PROMYELOCYTES % (M) 2 % (0-0); REACTIVE LYMPHOCYTES% (M) 9 % (0-0); SEG NEUT #M 6.1 10^3/ul (1.6-7.5); SEGMENTED NEUTROPHILS (M) % 49 % (39-77); SMUDGE%M 40 % (0-0)
[2018-06-14] MEDS: DEXTROSE 50% 50 ML SYRINGE IV (10:01)
[2018-06-14] MEDS: SODIUM POLYSTYRENE 15 GM KIT (POWDER + SORBITOL) PO (11:14)
[2018-06-14] MEDS ORDERED: GLUCAGON 1 MG INJ IM (12:00)
[2018-06-14] MEDS ORDERED: GLUCOSE GEL 15 GRAM TUBE BUCCAL (12:00)
[2018-06-14] MEDS ORDERED: GLUCOSE GEL 15 GRAM TUBE PO ×2 (12:00)
[2018-06-14] MEDS ORDERED: DEXTROSE 50% 50 ML SYRINGE IV ×2 (12:00)
[2018-06-14] MEDS: INSULIN ASPART [NOVOLOG] 3 ML PEN SC (12:58)
[2018-06-14 14:53] LABS: ABNORMAL IP MESSAGE 1; HEMATOCRIT 31.6 % (42.0-52.0); MEAN CORPUSCULAR HEMOGLOBIN 30.3 pg (29.0-33.0); MEAN CORPUSCULAR HGB CONC 28.5 g/dl (32.0-37.0); MEAN CORPUSCULAR VOLUME 106.4 fl (82.0-101.0); NUCLEATED RED BLOOD CELLS% 1.3 /100WBC (0.0-0.0); PLATELET COUNT 262 10^3/UL (140-415); POSITIVE DIFF @See below; RED BLOOD COUNT 2.97 10^6/ul (4.70-6.10)
[2018-06-14 14:59] LABS: ADD MAN DIFF? YES
[2018-06-14 15:50] LABS: LACTIC ACID 17.1 mmol/L (0.5-2.0)
[2018-06-14 15:57] LABS: ANION GAP 29 (5-13); BLOOD UREA NITROGEN 40 mg/dl (7-20); CALCIUM 8.6 mg/dl (8.4-10.2); CARBON DIOXIDE 15 mmol/L (21-31); CHLORIDE 92 mmol/L (97-110); CREATININE 4.04 mg/dl (0.61-1.24); Estimated GFR 15 mL/min (>60); GLUCOSE 168 mg/dl (70-220); MAGNESIUM 2.8 mg/dl (1.7-2.5); SODIUM 136 mmol/L (135-144)
[2018-06-14 16:06] LABS: PHOSPHORUS 12.3 mg/dl (2.5-4.9); POTASSIUM 6.1 mmol/L (3.5-5.1)
[2018-06-14 16:25] LABS: ANISOCYTOSIS 1+ (0-0); BAND NEUTROPHILS #M 3.6 10^3/ul (0.0-0.6); BAND NEUTROPHILS % (M) 18 % (0-4); BURR CELLS 2+ (0-0); GIANT THROMBO% (M) 4 % (0-0); LYMPHOCYTES % (M) 10 % (15-51); METAMYELOCYTES #M 0.6 10^3/ul (0.0-0.0); METAMYELOCYTES %M 3 % (0-0); MONOCYTE #M 1.4 10^3/ul (0.3-0.9); MONOCYTES % (M) 7 % (0-11); MYELOCYTES #M 0.6 10^3/ul (0.0-0.0); MYELOCYTES % (M) 3 % (0-0); PLATELET ESTIMATE NORMAL; POIKILOCYTOSIS 2+ (0-0); POLYCHROMASIA 1+ (0-0); SEG NEUT #M 12.5 10^3/ul (1.6-7.5); SEGMENTED NEUTROPHILS (M) % 59 % (39-77); SMUDGE%M 2 % (0-0)
== END 2018-06-14 17:30 | disposition expired | DRG 270 ==
LOC: ICU 06-07 10:03 → TEL 06-08 05:33 → ICU 06-12 19:50 → E/R 18:13 → ICU 06-05 17:26 → TEL 20:45
PROC: 4A023N7 Measurement of Cardiac Sampling and Pressure, Left Heart, Percutaneous Approach (ICD-10-PCS; principal; 2018-06-05 15:00)
PROC: B211YZZ Fluoroscopy of Multiple Coronary Arteries using Other Contrast (ICD-10-PCS; 2018-06-05 15:00)
PROC: B215YZZ Fluoroscopy of Left Heart using Other Contrast (ICD-10-PCS; 2018-06-05 15:00)
PROC: B312YZZ Fluoroscopy of Left Subclavian Artery using Other Contrast (ICD-10-PCS; 2018-06-05 15:00)
PROC: B41GYZZ Fluoroscopy of Left Lower Extremity Arteries using Other Contrast (ICD-10-PCS; 2018-06-05 15:00)
PROC: 5A02210 Assistance with Cardiac Output using Balloon Pump, Continuous (ICD-10-PCS; 2018-06-05 15:07)
PROC: 027235Z Dilation of Coronary Artery, Three Arteries with Two Drug-eluting Intraluminal Devices, Percutaneous Approach (ICD-10-PCS; 2018-06-05 15:07)
PROC: 02HV33Z Insertion of Infusion Device into Superior Vena Cava, Percutaneous Approach (ICD-10-PCS; 2018-06-05 15:07)
PROC: 5A1D70Z Performance of Urinary Filtration, Intermittent, Less than 6 Hours Per Day (ICD-10-PCS; 2018-06-05 15:07)
PROC: 5A12012 Performance of Cardiac Output, Single, Manual (ICD-10-PCS; 2018-06-05 15:07)
PROC: 0BH17EZ Insertion of Endotracheal Airway into Trachea, Via Natural or Artificial Opening (ICD-10-PCS; 2018-06-05 15:07)
PROC: 0YHJ33Z Insertion of Infusion Device into Left Lower Leg, Percutaneous Approach (ICD-10-PCS; 2018-06-05 15:07)
PROC: 3E0A3GC Introduction of Other Therapeutic Substance into Bone Marrow, Percutaneous Approach (ICD-10-PCS; 2018-06-05 15:07)
PROC: 5A2204Z Restoration of Cardiac Rhythm, Single (ICD-10-PCS; 2018-06-05 15:07)
PROC: 5A1945Z Respiratory Ventilation, 24-96 Consecutive Hours (ICD-10-PCS; 2018-06-05 15:07)
PROC: 4A023N7 Measurement of Cardiac Sampling and Pressure, Left Heart, Percutaneous Approach (ICD-10-PCS; 2018-06-05 15:07)
PROC: B211YZZ Fluoroscopy of Multiple Coronary Arteries using Other Contrast (ICD-10-PCS; 2018-06-05 15:07)
PROC: 06HY33Z Insertion of Infusion Device into Lower Vein, Percutaneous Approach (ICD-10-PCS; 2018-06-05 15:07)
DX: I25.110 Atherosclerotic heart disease of native coronary artery with unstable angina pectoris (principal); N18.6 End stage renal disease; R65.11 Systemic inflammatory response syndrome (SIRS) of non-infectious origin with acute organ dysfunction; J96.01 Acute respiratory failure with hypoxia; I50.22 Chronic systolic (congestive) heart failure; I13.2 Hypertensive heart and chronic kidney disease with heart failure and with stage 5 chronic kidney disease, or end stage renal disease; L03.116 Cellulitis of left lower limb; Z68.41 Body mass index [BMI] 40.0-44.9, adult; I74.3 Embolism and thrombosis of arteries of the lower extremities; G93.1 Anoxic brain damage, not elsewhere classified; I49.01 Ventricular fibrillation; I46.2 Cardiac arrest due to underlying cardiac condition; E11.649 Type 2 diabetes mellitus with hypoglycemia without coma; E11.22 Type 2 diabetes mellitus with diabetic chronic kidney disease; E66.01 Morbid (severe) obesity due to excess calories; E11.65 Type 2 diabetes mellitus with hyperglycemia; E78.5 Hyperlipidemia, unspecified; E11.51 Type 2 diabetes mellitus with diabetic peripheral angiopathy without gangrene; E87.5 Hyperkalemia; E11.40 Type 2 diabetes mellitus with diabetic neuropathy, unspecified; F32.9 Major depressive disorder, single episode, unspecified; G40.909 Epilepsy, unspecified, not intractable, without status epilepticus; I25.5 Ischemic cardiomyopathy; I48.0 Paroxysmal atrial fibrillation; I25.82 Chronic total occlusion of coronary artery; I95.9 Hypotension, unspecified; J44.9 Chronic obstructive pulmonary disease, unspecified; K52.9 Noninfective gastroenteritis and colitis, unspecified; K21.9 Gastro-esophageal reflux disease without esophagitis; K59.00 Constipation, unspecified; M54.2 Cervicalgia; R57.0 Cardiogenic shock; Z66 Do not resuscitate; T25.022A Burn of unspecified degree of left foot, initial encounter; T31.0 Burns involving less than 10% of body surface; X12.XXXA Contact with other hot fluids, initial encounter; Y93.G3 Activity, cooking and baking; Z87.891 Personal history of nicotine dependence; Z99.2 Dependence on renal dialysis; Z89.431 Acquired absence of right foot; Z95.810 Presence of automatic (implantable) cardiac defibrillator; Z79.4 Long term (current) use of insulin; Z79.01 Long term (current) use of anticoagulants; Z79.02 Long term (current) use of antithrombotics/antiplatelets; Z79.82 Long term (current) use of aspirin
CPT/HCPCS: 31500; 36415; 36556; 36600; 71045; 72040; 72072; 72100; 73030; 80048; 80053; 82150; 82550; 82553; 82728; 82803; 82947; 82962; 83036; 83540; 83605; 83690; 83735; 84100; 84132; 84484; 85025; 85384; 85610; 85730; 87040-91; 87070; 87081; 87340; 89220; 90935; 92941; 92950; 93005; 93306; 93454; 93458; 93970; 94002; 94003; 94770; 96374; 99285-25